=== PATIENT | male | born 1955 | race Caucasian/White ===

== ENCOUNTER 2016-08-08 17:42 | Inpatient (IN) | payer OTHER ==
--- NOTE | ~2016-08-08 | HP ---
Unit #: [id number] #: [id number] Patient: DANILO VELASQUEZ [id number] [address] [place], [place] [address] [id number] MR#: [id number] NAME: DANILO VELASQUEZ ROOM: 320 Age: 60 Sex: M Admission Date: 08/08/2016 : 1955 Attending Physician: Yasmeen Sharp M.D. Primary Care Physician: No Primary Care Physician HISTORY AND PHYSICAL CHIEF COMPLAINT Decreased saturation. HISTORY OF PRESENT ILLNESS This is a 60-year-old male, who is well known to me from previous admissions. In 2015 the patient had a very lengthy stay. Had to have a tracheostomy placed and PEG tube placed. The patient was discharged to [facility]. The patient stayed at [facility] for almost 19 months, came home 2 weeks ago. He was being seen by a nurse practitioner at home. Last week patient had a chest x-ray done, was found to have pneumonia, was started on p.o. antibiotics. On Saturday the patient was not looking good. He was getting worse. The patient was advised to come to the ER. The patient was found to have pneumonia and acute on chronic respiratory failure. The patient did not complain of chest pain. He had low-grade temperature of 99 or so. He was having a lot of drainage from his tracheostomy tube. It was very thin, and according to the patient's sister, it was projectile whenever they went to clean the tracheostomy. The patient also had been having very liquid stool since his discharge from [facility], and there was a lot of smell. The patient did not complain of abdominal pain, and he did not have any vomiting. The patient also was having very dark colored urine. PAST MEDICAL HISTORY 1. History of chronic respiratory failure with history of tracheostomy done in 2016. 2. History of autoimmune encephalitis, on immunoglobulins. 3. History of diabetes mellitus type 2. 4. History of hypertension. 5. History of coronary artery disease, on medical treatment, status post cardiac cath done April 14, 2015, which showed 75% mid LAD stenosis, 75% distal LAD stenosis, 70% stenosis anterior division of the first diagonal branch, 70% stenosis posterior left ventricular branch of the RCA. 6. Hyperlipidemia. 7. History of chronic back pain and degenerative disk disease. PAST SURGICAL HISTORY 1. History of bilateral knee surgery. 2. History of tonsillectomy. 3. History of cardiac cath. Unit #: [id number] #: [id number] Patient: DANILO VELASQUEZ 4. History of tracheostomy. 5. History of PEG placement. 6. 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 Patient had left hemicolectomy with sigmoid colectomy with transverse colostomy and Savanna pouch. This procedure was done in 2015. HOME MEDICATIONS 1. Norvasc 5 mg q.12 hours. 2. Levemir 8 units subcu q.12. 3. Novolin R p.r.n. 4. Isosorbide 20 mg q.12. 5. Senna 10 mL p.o. p.r.n. 6. Roman-Dur 100 mg q.8 hours. 7. Sarafem 20 mg daily. 8. Olanzapine 5 mg daily. 9. Multivitamin daily. 10. MiraLAX 17 grams daily. 11. Simethicone 40 mg q.8. 12. Hydrocodone 10/325 q.4 p.r.n. 13. Vimpat 100 mg q.12. 14. Xanax 0.5 mg q.6 hours. SOCIAL HISTORY Patient was in [facility] for almost 19 months. He came home about 2 weeks ago. There is no history of smoking, alcohol or drug abuse. ALLERGIES Tetanus and diphtheria toxoid. FAMILY HISTORY Positive for coronary artery disease. REVIEW OF SYMPTOMS As per history of presenting illness. PHYSICAL EXAMINATION GENERAL: The patient is being evaluated in room 320. VITAL SIGNS: Blood pressure is 126/72, respiratory rate (1) , pulse 66, temperature 98.1. The patient is on oxygen; saturation is 100% at this time. HEENT: Head is normocephalic. Eye movements are normal. NECK: Patient has tracheostomy in place. A lot of thin discharge is seen. RESPIRATORY: Chest has decreased air entry bilaterally. CVS: S1, S2 positive. Regular rhythm. ABDOMEN: Scarring from the previous surgery. PEG tube is in place. Colostomy is in place. EXTREMITIES: Trace edema is present, left more than right. AUTO TOP MECHANIC: The patient is awake and alert. Not able to communicate much. Most of the history was taken from the patient's sister, (2) . DIAGNOSTIC STUDIES LAB WORKUP: C. diff. is positive. ABG showed pH 7.36, pCO2 44.4, pO2 54.5, bicarb 25, oxygen saturation 88%. Lactic acid is 2. WBC is 16.1, hemoglobin 9.3, hematocrit 28, platelet count 166. BMP showed sodium 139, potassium 3.4, chloride 106, BUN 21, creatinine 1.1. Liver enzymes are stable. Urinalysis was done, which showed 4+ bacteria. Lactic acid is 1.7. Unit #: [id number] #: [id number] Patient: DANILO VELASQUEZ ASSESSMENT 1. Patient is being admitted to telemetry unit with diagnoses of acute on chronic respiratory failure status post trach. 2. Sepsis. 3. C. diff. colitis. 4. Urinary tract infection. 5. Healthcare facility acquired pneumonia. 6. History of autoimmune encephalitis. 7. History of CVA in the past. 8. History of diabetes mellitus. 9. Hypertension. 10. Hyperlipidemia. 11. Coronary artery disease. PLAN Patient is being started on broad-spectrum IV antibiotics. Panculture has been done. Dr. Krishnan has been consulted. Lovenox 40 mg subcu daily for DVT prophylaxis is being started. Home medications have been reviewed and adjusted. Dr. Oakes has been consulted and will be started on immunoglobulin 60 grams once every 2 weeks. Please refer to progress note for further orders. PROGNOSIS Poor. NOTE: I have discussed the plan of care with the patient's sister. Dictated by Brittaney Smallwood TD: 08/10/2016 16:04 JOB #: [id number] HISTORY AND PHYSICAL Page 1 of 1 X Yasmeen Sharp MD HISTORY AND PHYSICAL
--- NOTE | ~2016-08-08 | FU ---
[facility] Nutrition Therapy DATE: 08/17/16 Patient: DANILO VELASQUEZ Physician: TANIKA Address: [address] [place] [address] DRIVE Room/Bed: [address] [place] [address], Zip: [place] [address] Admit Date: 08/08/16 Date of : 55 Height: 5 8 Weight: 200 91 NUTRITION MONITORING/FOLLOW-UP: Reason: Follow up Anthropometrics: Wt: 91 kg Labs: K+ 3.2 Gluc 114 Creat 0.5 Ca++ 7.3 Mg++ 1.4 Accuchecks 126-127 Meds: Levemir, protonix, MgSO4, KCl, senokot, novolog, NaCl, miralax I&O's: 5900/1900, last BM 08/17, colostomy Skin: Pressure ulcer to sacrum Scabs/ redness/ scars B:E Edema: Trace- BLE/ BUE/ LUE Diet: Mechanical chopped with NTL Assessment: Chart reviewed, events noted. RD spoke with RN, who reports that the pt's intake continues to be adequate, and family typically feeds him. Pt continues on a mechanical chopped diet with NTL. High protein diet education provided to family by RD on 08/09 d/t the pt's noted pressure ulcer. Please see recommendations below. Dx: Increased protein needs RT skin breakdown AEB pressure ulcer to sacrum- ACTIVE Intervention: 1. Continue diet and supplements Monitoring, Evaluation and Goals: 1. Oral intake- GOALS MET 2. Weight- GOALS MET/ IN PROGRESS 3. Skin- IN PROGRESS Recommendations: 1. Continue current diet and supplement regimen with mechanical chopped/ ground foods and Ensure pudding BID. 2. Add a MVI with minerals to the pt's medication regimen to promote wound healing. Status: Pt is at mild nutritional risk. [facility] Nutrition Therapy DATE: 08/17/16 Patient: DANILO VELASQUEZ Physician: TANIKA Address: [address] [place] [address] DRIVE Room/Bed: [address] [place] [address], Zip: [place] [address] Admit Date: 08/08/16 Date of : [birth year] Height: 5 8 Weight: 200 91 Respectfully, STEPHON SCHILLING, [place], LD [facility] cc: client file
--- NOTE | ~2016-08-08 | A ---
[facility] Nutrition Therapy DATE: 08/09/16 Patient: DANILO VELASQUEZ Physician: TANIKA Address: [address] Room/Bed: [address], Zip: [place] [address] Admit Date: 08/08/16 Date of : 55 Height: 5 8 Weight: 202 92 NUTRITIONAL ASSESSMENT: REASON: ONE NUTRITION RISK PT RE: PRESSURE ULCER/NON-HEALING WOUND PT IS 60 Y.O. MALE ADMITTED FOR HAP PMH: NO RECENT H&P IN [facility]. PER CHART/PAST NOTES: TRACHEOSTOMY, DM, SEIZURES, CVA, HTN, HLD, COLITIS, CAD, HX OF (R) FOOT MRSA INFECTION Anthropometrics: 5'8" (PER FAMILY), WT: 178# (FAMILY) (81 KG), BMI: 27.1 Labs: GLU: 267, CA+:7.9, ALB: 2.1 Meds: NACL, PROTONIX, NOVOLOG, D5%, SENOKOT, MIRALAX I/O & Bowel function: 1642/535 Skin Integrity: BILATERAL BUTTOCKS PRESSURE ULCER EDEMA: PEDAL/ANKLE TRACE EDEMA; BILATERAL HIPS GENERAL Estimated Nutrition Needs: INCREASED PROTEIN NEEDS 2' SKIN BREAKDOWN NOTED Assessment: CHART REVIEWED AND EVENTS NOTED. PT SEEN FOR PRESSURE ULCER/NON-HEALING WOUND. PT HARD OF HEARING W/TRACH IN PLACE, RD SPOKE TO SISTER AT BEDSIDE FEEDING PT. SISTER REPORTS PT HAS GOOD PO INTAKE AND APPETITE, NOTING NO C/O N/V/D. OF NOTE, PT IS A FEEDER. SISTER ADDS PT HAS BEEN EATING WELL PAST MONTH (NO ENTERAL NUTRITION SUPPORT). SISTER NOTES PT HAS LOST WEIGHT BUT UNABLE TO IDENTIFY AMOUNT AND TIME FRAME. PER [facility], PT WEIGHED ~196-235# BACK IN APR 2016. THIS RD ENCOURAGED ADEQUATE KCAL, PROTEIN AND FLUID INTAKE TO PROMOTE SKIN HEALING, SISTER AGREED THAT ENSURE PUDDING WOULD BE BENEFICIAL FOR PT (PT RECEIVING MECHANICAL GROUND + NECTAR THICK LIQUIDS). FAMILY REPORTED NO DIET QUESTIONS AT THIS TIME. Dx: INCREASED PROTEIN NEEDS R/T SKIN BREAKDOWN AEB PRESSURE ULCER NOTED ON BILATERAL BUTTOCKS. Intervention: 1. MECHANICAL GROUND + NECTAR THICK LIQUID DIET 2. ENSURE PUDDING BID 3. DIET EDUCATION Monitoring, Evaluation and Goals: 1. ORAL INTAKE; CONSUME >50% OF MEALS AND SUPPLEMENTS W/NO C/O N/V/D 2. WEIGHTS; PROMOTE WEIGHT MAINTENANCE 3. LABS; WNL-GLU [facility] Nutrition Therapy DATE: 08/09/16 Patient: DANILO Espinal RON Physician: TANIKA Address: [address] [place] [address] DRIVE Room/Bed: [facility], Zip: [place] [address] Admit Date: 08/08/16 Date of : 55 Height: 5 8 Weight: 202 92 4. SKIN; PROMOTE SKIN HEALING MONITOR: -PO INTAKE/APPETITE -WEIGHTS -SUPPLEMENT INTAKE Recommendations: 1. PLEASE ORDER ENSURE PUDDING BID W/MEALS 2. CONSIDER ADDING MVI W/MINERAL DAILY TO PT'S CURRENT MEDICATION REGIMEN TO PROMOTE SKIN HEALING 3. APPRECIATE FAMILY AND STAFF TO CONTINUE TO ENCOURAGE PO INTAKE + ASSIST W/PO INTAKE RD WILL F/U PER PROTOCOL PT IS MILDLY COMPROMISED Respectfully, SAVANNAH HARDING MS, RD, LD Food and Nutritional [facility] cc: client file
--- NOTE | ~2016-08-08 | OR ---
Unit #: [id number] #: [id number] Patient: DANILO VELASQUEZ [id number] [address] [place], [place] [address] [id number] I MR#: [id number] NAME: DANILO VELASQUEZ ROOM: 320 Date of Procedure: 08/21/2016 Admission Date: 08/08/2016 Surgeon: Serafin Arndt M.D. : 1955 Attending Physician: Yasmeen Sharp M.D. Primary Care Physician: No Primary Care Physician PROCEDURE OPERATIVE NOTE PROCEDURE PERFORMED Tracheostomy tube downsizing at bedside. INDICATION FOR PROCEDURE Facilitating speech therapy. PREMEDICATIONS None. DESCRIPTION OF PROCEDURE No consent was obtained as this is not needed. Patient was prepped and positioned in a proper way and suction was applied first, then the cuff was made sure deflated to the end and the old tracheostomy tube was removed with no complication. Then, a new Shiley size 6 cuffless tube was inserted over the obturator inside the old tract with no complication. The trach collar was applied again and patient tolerated his procedure well with no immediate complications. Dictated by... Serafin Arndt M.D. EA/mckenna TD: 08/21/2016 10:05 JOB #: [id number] PROCEDURE OPERATIVE NOTE Page 1 of 1 X SERAFIN ARORA MD X PROCEDURE OPERATIVE NOTE
--- NOTE | ~2016-08-08 | OR ---
Unit #: [id number] #: [id number] Patient: DANILO VELASQUEZ [id number] [address] [address] [id number] MR#: [id number] NAME: DANILO VELASQUEZ ROOM: 320 Date of Procedure: Admission Date: 08/08/2016 Surgeon: Nemo Krishnan M.D. : 1955 Attending Physician: Yasmeen Sharp M.D. Primary Care Physician: Alona Primary Care Physician PROCEDURE OPERATIVE NOTE PROCEDURE PERFORMED Diagnostic bronchoscopy. INDICATIONS Pneumonia. PRE-PROCEDURE DIAGNOSIS Pneumonia. POST PROCEDURE DIAGNOSIS Pneumonia. DETAILS OF THE PROCEDURE After taking consent from the patient explaining the risks and benefits, the patient was placed in a proper position. Bronchoscope introduced through the tracheostomy tube which was sitting well above the em. We examined the right upper lobe, right middle lobe, right lower lobe, left upper lobe, lingula and left lower lobe. There were thick mucoid plugs in the right upper and middle lobe and lower lobe which were therapeutically suctioned. Then, we did a bronchoalveolar lavage in the right lower lobe area with 100 mL of saline in and 20 mL back. The patient tolerated the procedure very well. No complications happened. Dictated by... Brittaney Gaviria/eayl TD: 08/11/2016 15:48 JOB #: [id number] Unit #: [id number] #: [id number] Patient: DANILO VELASQUEZ PROCEDURE OPERATIVE NOTE Page 1 of 1 X Nemo Krishnan MD X PROCEDURE OPERATIVE NOTE
--- NOTE | ~2016-08-08 | DS ---
Unit #: [id number] #: [id number] Patient: DANILO CUEVA [id number] [address] [address] [id number] I MR#: [id number] NAME: DANILO CUEVA ROOM: 320 Age: 60 Sex: M Admission Date: 08/08/2016 : 1955 Discharge Date: 08/22/2016 Attending Physician: Yasmeen hSarp M.D. DISCHARGE SUMMARY Patient has had a pretty lengthy stay during this hospitalization. DISCHARGE DIAGNOSES 1. Acute on chronic hypoxic respiratory failure. 2. History of tracheostomy in place and oxygen to keep saturation above 95%. 3. Pneumonia, most likely healthcare facility-acquired pneumonia as patient was discharged from [facility] recently. Patient has completed a course of antibiotics. 4. Urinary tract infection with urine culture positive for extended-spectrum beta-lactamase production and Klebsiella pneumoniae. Patient has completed a course of treatment. 5. Relapse of Clostridium difficile infection. 6. Hypokalemia, resolved. 7. Hypomagnesemia, improved. 8. Diabetes mellitus type 2. 9. History of autoimmune encephalitis. 10. History of seizure disorder. 11. History of coronary artery disease, on medical treatment. 12. Hyperlipidemia. 13. History of chronic back pain with degenerative disc disease. DISCHARGE MEDICATIONS 1. Metronidazole 500 mg every 8 hours until August 24, 2016. 2. Bumex 1 mg b.i.d. 3. Zestril 5 mg at bedtime. 4. MiraLax p.r.n. 5. Multivitamin daily. 6. Hydrocodone. Continue home dose. 7. Levemir 10 units subcutaneous q.a.m. and 6 units at night. 8. Theophylline. Continue home dose. 9. Zyprexa 5 mg through G-tube daily. 10. Vimpat 100 mg q.12 hours. 11. Sarafem 20 mg daily. 12. Simethicone 40 mg 3 times daily. 13. Ativan 1 mg q.i.d. CONSULTATIONS 1. Dr. Christian Arndt from pulmonary services. 2. Dr. Cruz from Infectious Disease. PROCEDURES PERFORMED 1. Tracheostomy tube downsizing at bedside which was done on August 21, 2016, by Dr. Arndt. Unit #: [id number] #: [id number] Patient: DANILO CUEVA R 2. Diagnostic bronchoscopy which was done by Dr. Krishnan on August 11, 2016. DIAGNOSTIC STUDIES LABORATORY ON DISCHARGE: Glucose is 70. BMP shows sodium 138, potassium 3.4, chloride 104, BUN 7, and creatinine 0.6. CBC shows WBC 7.7, hemoglobin 8.4, hematocrit 25, and platelet count of 224,000. HOSPITAL COURSE Mr. Danilo Cueva is a 60-year-old male who has had a very lengthy stay at [facility]. He was admitted with shortness of breath and decreased saturation. Patient was admitted to telemetry unit with acute on chronic respiratory failure. Patient was septic and diagnosed with a UTI, pneumonia, and C. difficile colitis. Patient was treated in the hospital with broad spectrum IV antibiotic and later on tapered as per Dr. Cruz's consultation and recommendation. Patient has had C. difficile infection even in the past, and this was a relapse. Patient has completed a course of antibiotics for UTI and also for pneumonia. We were trying to get rehab placement for this patient but not available, not accepting physician or a facility. Patient refused to go to [facility]. Patient's would like to take him home, and patient will be discharged home. He is stable today. PHYSICAL EXAMINATION VITAL SIGNS: Blood pressure 117/65, respiratory rate 18, pulse 66, and temperature 98.8. HEENT: Head is normocephalic. Trach is in place. CHEST: Decreased air entry bilateral. CARDIOVASCULAR: Regular rhythm. ABDOMEN: Soft. PEG tube is in place. Colostomy is in place. DISCHARGE INSTRUCTIONS 1. Patient is being discharged home. 2. Oxygen is being arranged to keep saturation above 95%. 3. Continue suctioning at home. Patient's is aware of that. 4. Tube feeds per senior mainframe programmer analyst. 5. Med Assist to follow patient. 6. Follow up with primary care provider in one week. 7. CBC and BMP to be done in one week. 1. Dictated by... Yasmeen Sharp M.D. Kyle TD: 08/22/2016 17:32 JOB #: [id number] Unit #: [id number] #: [id number] Patient: DANILO CUEVA DISCHARGE SUMMARY Page 1 of 1 X Yasmeen Sharp MD X DISCHARGE SUMMARY
--- NOTE | ~2016-08-08 | FU ---
[facility] Nutrition Therapy DATE: 08/21/16 Patient: DANILO VELASQUEZ Physician: TANIKA Address: [address] [place] [address] DRIVE Room/Bed: [address] [place] [address], Zip: [place] [address] Admit Date: 08/08/16 Date of : 55 Height: 5 8 Weight: 199 90.6 NUTRITION MONITORING/FOLLOW-UP: Reason: Enteral nutrition recommendations Anthropometrics: Ht: 5'8" Adm wt: 92 kg BMI: 30.8 Wt 08/21: 90.6 kg Labs: Gluc 115 BUN 7 Ca++ 8.3 Alb 2.4 Accuchecks 80-138 Meds: Levemir, protonix, MgSO4, KCl, senokot, novolog, NaCl, miralax, MVI + minerals I&O's: 6920/2140, last BM 08/20, colostomy, C.diff Skin: Stage 2 pressure ulcer to coccyx Scabs/ scars/ redness BLE Edema: Trace BLE/ LUE Generalized RUE 2+ Estimated Nutrition Needs: 0438-7722 kcals (22-26 kcals/kg) 108-136 grams protein (1.2-1.5 grams/kg) Used current lift weight of 90.6 kg for calculations Diet: [place] diet with Honey thick liquids Assessment: Chart reviewed, events noted. RD spoke with BINDING CUTTER, who reports that the pt likely aspirated over the weekend, and just had a new BINDING CUTTER video evaluation. BINDING CUTTER is now recommending that the pt consume a slick diet with honey thick liquids for oral gratification, and enteral nutrition for his main source of nutrition noting dysphagia. Slow feeding also recommended. Based on previous nutrition assessments, the pt was previously had a good appetite and was consuming adequate nutrition. Weight loss of unknown amount reported by the pt's family. Per RN report yesterday, the pt's family usually feeds him, and he consumed ~two meals each day over the past couple of days. RD spoke with the pt's brother at bedside today. Pt's brother states that the pt "Eats well when he eats", and agrees that he typically consumes almost 100% of breakfast and dinner, but does not eat lunch. RD explained bolus vs. continuous feedings to the pt's brother, and he voiced understanding. Pt has received continuous enteral nutrition in the past at [facility], however, family has never administered bolus enteral feeds and will need [facility] Nutrition Therapy DATE: 08/21/16 Patient: DANILO VELASQUEZ Physician: TANIKA Address: [address] Room/Bed: [address] [place] [address], Zip: [place] [address] Admit Date: 08/08/16 Date of : 55 Height: 5 8 Weight: 199 90.6 assistance with feeding instructions. Please see recommendations below. Dx: Increased protein needs RT skin breakdown AEB stage II pressure ulcer to coccyx/ sacrum- ACTIVE Intervention: 1. BINDING CUTTER 2. Enteral nutrition Monitoring, Evaluation and Goals: 1. Weight; prevent unintentional weight loss- IN PROGRESS 2. Skin; promote healing- IN PROGRESS NEW GOALS (IN ADDITION TO ABOVE): 1. Oral intake; tolerate BINDING CUTTER recommended diet for oral gratification 2. Enteral nutrition; tolerate and provide >80% of the pt's estimated needs with goal volume 3. BINDING CUTTER; tolerate least restrictive diet Recommendations: 1. Continue diet per BINDING CUTTER recommendations for oral gratification. 2. RD recommending bolus enteral nutrition with Glucerna 1.5 at this time to determine if the pt can tolerate bolus feeds. Bolus regimen will be based on the pt's intake as follows: (One can Glucerna 1.5 = 237 mL) (237 mL Glucerna 1.5 provides 356 kcals/ 19.6 grams protein/ 180 mL free H20) -IF THE PT HAS POOR/ MINIMAL INTAKE OF MEALS: Bolus 474 mL (two cans) Glucerna 1.5 TID at the pt's normal meal times for a total of 6 cans (1422 mL) per day May bolus one can (237 mL) q 4 hrs if the pt cannot tolerate two cans at one time -IF THE PT CONSUMES 50% OF MEALS: Bolus one can Glucerna 1.5 with each meal if the pt consumes 50% of meals or greater (Bolus two cans Glucerna 1.5 at each meal if the pt does not consume at least 50% of meals) 3. Add 200 mL free H20 flushes q 4 hrs per per MD orders. [facility] Nutrition Therapy DATE: 08/21/16 Patient: DANILO VELASQUEZ Physician: TANIKA Address: [facility] [address] Room/Bed: [address] [place] [address], Zip: [place] [address] Admit Date: 08/08/16 Date of : 55 Height: 5 8 Weight: 199 90.6 4. If the pt is unable to tolerate bolus feeding, consider continuous enteral nutrition with Glucerna 1.5 @ 60 mL/hr to provide: 2160 kcals/ 119 grams protein/ 1093 mL free H20 Status: Pt is at moderate nutritional risk. RD will continue to follow hospital course. Respectfully, STEPHON SCHILLING, [place], LD [facility] Nutrition[facility] Services [facility] cc: client file
--- NOTE | ~2016-08-08 | CO ---
Unit #: [id number] #: [id number] Patient: DANILO VELASQUEZ [id number] [address] [place], [place] [address] [id number] I MR#: [id number] NAME: DANILO VELASQUEZ ROOM: 320 Age: 60 Sex: M Admission Date: 08/08/2016 : 1955 Attending Physician: Yasmeen Sharp M.D. Primary Care Physician: Alona Primary Care Physician Consultation Date: 08/16/2016 CONSULTATION REPORT REASON FOR CONSULTATION Antibiotic management in a patient with multi-drug resistant Pseudomonas. HISTORY OF PRESENT ILLNESS This is a 60-year-old male that is well known to our service when patient was at the [facility] for greater than one year. While there, the patient was treated for frequent urinary tract infections, multiple pneumonias including multi-drug resistant Pseudomonas pneumoniae and colonization, CMV colitis, C. 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 The patient was at home for approximately two weeks when he was requested to come back to the hospital by his home health nurses. The patient's family, who is at the bedside, reports that they felt that his oxygen level was decreasing but they are unaware of he had any increasing secretions. The patient was admitted to the hospital and a CT scan revealed bilateral pneumonia and patient was started on meropenem. The patient was also diagnosed with a Klebsiella ESBL urinary tract infection as well as relapse of C. diff colitis. The patient was also given Flagyl. The patient's bronchoscopy now is growing multi-drug resistant Pseudomonas and infectious disease was requested for antibiotic management. The patient did have a followup chest x-ray since he has been at the hospital and, after one week of antibiotic therapy, has had resolution on the left side of his infiltrates and minimal right sided infiltrates. In discussing with patient, he looks significantly better than the last time we have seen this patient in May 2016. He is more alert, he has a trach collar on, and he appears to be able to communicate with others around him. PAST MEDICAL HISTORY 1. Chronic respiratory failure with history of tracheostomy that was placed in 2015. 2. Autoimmune encephalitis, on immunoglobulins. 3. Diabetes mellitus. 4. Hypertension. 5. Coronary artery disease. 6. Hyperlipidemia. 7. Chronic back pain with degenerative disc disease. As previously stated in the history of present illness: 8. C. diff colitis. 9. Multi-drug resistant Pseudomonas pneumoniae and multiple Pseudomonas and ESBL urinary tract infections. PAST SURGICAL HISTORY 1. Bilateral knee surgery. 2. Tonsillectomy. Unit #: [id number] #: [id number] Patient: DANILO VELASQUEZ 3. Cardiac cath. 4. Tracheostomy. 5. PEG placement. 6. Colostomy. ALLERGIES Tetanus and diphtheria. MEDICATIONS The patient is currently on meropenem and Flagyl and he got a one-time dose of tobramycin yesterday. For other medications, please refer to patient's MAR. SOCIAL HISTORY The patient currently lives with his family members. He has no alcohol or tobacco abuse at this time. REVIEW OF SYSTEMS Difficult to obtain as patient is currently on a trach collar. However, he shakes his head no to having any difficulty with breathing and he denies any abdominal pain with palpation. PHYSICAL EXAMINATION VITAL SIGNS: Temperature 97.6 with no elevated temperature since admission. Pulse is 82, blood pressure 158/89 and respiratory rate is 18. GENERAL: This is a no apparent distress male who has a trach collar in place. HEENT/NECK: His pupils are equal. His neck is supple. CARDIOVASCULAR: S1, S2. Regular rate and rhythm. PULMONARY: Occasional rhonchi noted throughout. ABDOMEN: Positive bowel sounds. There is an incision that is healed in the midline and he has a colostomy in place. EXTREMITIES: PICC line in the right upper extremity. There is no edema noted. DIAGNOSTIC STUDIES LABORATORY: BUN 11, creatinine 0.6, sodium 139, potassium 3.6, chloride 104, CO2 30, bilirubin 0.6 when last checked, AST 27, ALT 27, alkaline phos. 182. Lactic acid on admission was 1.7. Procalcitonin was 0.26. White blood cell count is 8.4 which is improved from admission of 16.1. Hemoglobin 9.1, hematocrit 27.3, and platelets 198. Urinalysis that was done on admission showed 50-100 WBCs, 4+ bacteria, no RBCs, 2+ leukocytes and negative nitrates. Blood cultures are currently negative to date. C. diff is positive toxin. Urine culture shows ESBL Klebsiella pneumoniae. Sputum culture showed normal respiratory marie and bronchoscopy showed 2+ Pseudomonas aeruginosa, multi-drug resistant. IMAGING: Patient's admitting CT scan of the chest shows bilateral pneumonia and repeat chest film approximately one week later showed infiltrates in the left have resolved and small right pleural effusion, atelectasis or consolidation in the right base. Unit #: [id number] #: [id number] Patient: DANILO VELASQUEZ This is a 60-year-old male well known to our service who has had frequent urinary tract infections, multi-drug resistant pseudomonas, C. diff colitis, CMV colitis and autoimmune encephalitis. The patient was at the [facility] for greater than one year and he has since been home for approximately two weeks and returned to the hospital with some hypoxia. The patient's CT scan was consistent with bilateral pneumonia and he also had an ESBL Klebsiella urinary tract infection as well as relapse of C. diff colitis. At this time, despite being on therapy that was not sensitive to a Pseudomonas that was growing on his bronchoscopy, the patient's chest x-ray has significantly improved and he does not appear to be hypoxic at this time. He remains on trach collar and is clinically improving. This makes me suspicious to feel that his multi-drug resistant Pseudomonas aeruginosa that was done on bronchoscopy is colonization. Will complete a course of meropenem. Will hold any additional antibiotic as the patient does have a relapse of C. diff colitis and continue Flagyl. The case will be discussed with Dr. Fito Cruz in detail. Will also repeat procalcitonin level of the blood that is currently in the lab and will check a CBC in the a.m. Thank you for allowing us to participate in the car of this patient with further recommendations to follow pending patient's clinical course. Dictated by... Kirsten Solorzano A.P.R.NGrant for Brittaney García/eyal TD: 08/16/2016 11:34 JOB #: [id number] CONSULTATION REPORT Page 1 of 1 X X CONSULTATION REPORT
--- NOTE | ~2016-08-08 | CT57 ---
[facility]. [facility] A Service of [facility] & [facility] RADIOLOGY TEXT RESULTS PATIENT: DANILO VELASQUEZ LOCATION: [facility] 320-01 : 55 UNIT #: [id number] AGE: [address]: Yasmeen Sharp MD SEX: M ORDER DR: [id number] [place] [address] [facility]. [place], [place] [address] [id number] I MR#: [id number] Acc #: [id number] NAME: DANILO VELASQUEZ : 1955 SEX: M STUDY DATE/TIME: 08/09/2016 13:48 UNIT: A U ROOM: 320 STUDY DESCRIPTION: CT Chest Wo Cont Attending Physician: Yasmeen Sharp M.D. Ordering Physician: Nemo Krishnan M.D. Primary Care Physician: No Primary Care Physician MEDICAL IMAGING REPORT This report is preliminary unless electronic signature is present EXAM CT chest no contrast 08/09/2016 INDICATIONS 60-year-old male with pneumonia for the past 2 days. Left femur fracture, hypertension, diabetes. Tracheostomy patient. TECHNIQUE Noncontrast CT chest was performed. This CT exam was performed with one or more of the following radiation dose reduction techniques: automatic exposure control, adjustment of mA and/or kV according to patient size, and iterative reconstruction. COMPARISON STUDIES 02/04/[address] CHEST: Trace right and small left pleural effusions. There is confluent atelectasis or pneumonia in the left lung base. Similar findings in the right lung base although aeration in the right lung base has improved since the prior study. Patchy areas of consolidation are present in the superior segment left lower lobe and in the lingula, most characteristic of pneumonia until proven otherwise. Similar patchy ground-glass opacities and more confluent opacities are present in the right upper lobe and right middle lobe, most characteristic of pneumonia until proven otherwise. No pneumothorax. Follow up to clearing after appropriate therapy is recommended. Tracheostomy tube in good position above the em. Visualized thyroid unremarkable. The left thyroid lobe is either atrophic or surgically absent. No pericardial effusion. No axillary adenopathy or mediastinal adenopathy. There are reactive-appearing mediastinal nodes. There is STS. [facility] A Service of [facility] & [facility] RADIOLOGY TEXT RESULTS PATIENT: DANILO VELASQUEZ LOCATION: [facility] 320-01 : [birth year] UNIT #: [id number] AGE: [address]: Yasmeen Sharp MD SEX: M ORDER DR: aneurysmal dilatation of the ascending aorta up to 4.2 cm. This is similar to the prior study. There is old healed granulomatous disease. Included upper abdomen demonstrates a G-tube in the stomach. Pancreas atrophic. Gallbladder contracted. Liver unremarkable. Trace amount of perihepatic ascites and perisplenic ascites. No evidence of bowel obstruction or free air. Osseous structures demonstrate no suspicious bone lesion. There are degenerative changes in the shoulders, right greater than left. There is degenerative change in the thoracic spine. IMPRESSION 1. Imaging features most characteristic of bilateral pneumonia. Trace right and small left effusions. Follow up to clearing after appropriate therapy is recommended. 2. Mild aneurysmal dilatation of the ascending aorta is similar to the prior study. Probable reactive mediastinal nodes. 3. Trace amount of upper abdominal ascites. 4. Tracheostomy tube, NG tube in satisfactory position. Dictated by... Allen Patel M.D. THIS IS AN ELECTRONICALLY VERIFIED REPORT Allen Patel M.D. at 08/10/2016 7:54 AM Anusha TD: 08/09/2016 17:32 JOB #: [id number] MEDICAL IMAGING REPORT Page 1 of 1 COPY
--- NOTE | ~2016-08-08 | CR72 ---
[facility] A Service of [facility] & [facility] RADIOLOGY TEXT RESULTS PATIENT: DANILO VELASQUEZ LOCATION: [facility] 320-01 : 55 UNIT #: [id number] AGE: [address]: Yasmeen Sharp MD SEX: M ORDER DR: [id number] [facility] [address] [facility]. [place], [place] [address] [id number] I MR#: [id number] Acc #: [id number] NAME: DANILO VELASQUEZ : 1955 SEX: M STUDY DATE/TIME: 08/15/2016 12:51 UNIT: [address] ROOM: [facility] STUDY DESCRIPTION: CR Chest Single View Portable Attending Physician: Yasmeen Sharp M.D. Ordering Physician: Yasmeen Sharp M.D. Primary Care Physician: No Primary Care Physician MEDICAL IMAGING REPORT This report is preliminary unless electronic signature is present EXAM Portable chest INDICATION Shortness of breath, pneumonia since August 08. COMPARISON STUDIES With August 08, 2016 FINDINGS Small right pleural effusion with atelectasis or consolidation in the right base. Heart size stable. Infiltrates in the left lung have resolved. Tracheostomy tube stable. PICC line stable. IMPRESSION 1. The infiltrates in the left lung have resolved. 2. Stable small right pleural effusion with atelectasis or consolidation in the right lung base. Dictated by... Luis Geiger M.D. THIS IS AN ELECTRONICALLY VERIFIED REPORT Luis Geiger M.D. at 08/16/2016 7:02 AM [place] TD: 08/15/2016 16:27 JOB #: [id number] MEDICAL IMAGING REPORT Page 1 of 1 COPY
--- NOTE | ~2016-08-08 | EKG ---
PATIENT: DANILO VELASQUEZ UNIT #: [id number] Ventricular Rate: 80 BPM Atrial Rate: 80 BPM P-R Interval: 160 ms QRS Duration: 106 ms Q-T Interval: 384 ms QTC Calculation(Bezet): 442 ms P [place]: 21 degrees Calculated R [place]: 60 degrees Calculated T [place]: -72 degrees Diagnosis Line: Normal sinus rhythm Diagnosis Line: Nonspecific ST depression Diagnosis Line: Borderline ECG Diagnosis Line: When compared with ECG of 15-APR-2015 05:52, Diagnosis Line: QRS duration has increased Diagnosis Line: Borderline criteria for Inferior infarct are now Diagnosis Line: Present Diagnosis Line: Inverted T waves have replaced nonspecific T wave Diagnosis Line: abnormality in Inferior leads Diagnosis Line: T wave inversion no longer evident in Anterior Diagnosis Line: leads Diagnosis Line: QT has shortened Diagnosis Line: Confirmed by CJ THOMAS MD ([id number]) on 08/09/2016 Diagnosis Line: 6:41:35 PM INTERPRETING MD: WILLIAM CHURCH
--- NOTE | ~2016-08-08 | CR72 ---
[facility] A Service of [facility] RADIOLOGY TEXT RESULTS PATIENT: DANILO VELASQUEZ LOCATION: [facility] 320-01 : 55 UNIT #: [id number] AGE: [address]: Yasmeen Sharp MD SEX: M ORDER DR: [id number] [facility] [address] [facility]. [place], [place] [address] [id number] I MR#: [id number] Acc #: [id number] NAME: DANILO VELASQUEZ : 1955 SEX: M STUDY DATE/TIME: 08/08/2016 18:21 UNIT: CEDOF ROOM: 68904 STUDY DESCRIPTION: CR Chest Single View Portable Attending Physician: Yasmeen Sharp M.D. Ordering Physician: Yasmeen Brush M.D. Primary Care Physician: No Primary Care Physician MEDICAL IMAGING REPORT This report is preliminary unless electronic signature is present EXAM Portable chest. INDICATION Hypoxia and fever today. PROCEDURE Frontal view chest. COMPARISON 05/14/16 FINDINGS Stable cardiomegaly. Tracheostomy tube is in place. Stable elevated right hemidiaphragm with infiltrate or atelectasis in the right lung base. There is some patchy opacity in the left pnm-yy-ihrzo lung zone, possible right pleural effusion. IMPRESSION Persistently elevated right hemidiaphragm with stable opacity in the right lung base. There possibly is a small right pleural effusion. New patchy opacity in the left taq-az-lhsbl lung zone could represent asymmetric edema or developing infiltrate. Dictated by... Prem Tierney M.D. THIS IS AN ELECTRONICALLY VERIFIED REPORT Prem Tierney M.D. at 08/09/2016 2:25 PM NEHEMIASD/thais [facility] A Service [facility] RADIOLOGY TEXT RESULTS PATIENT: DANILO VELASQUEZ LOCATION: [facility] 320-01 : [birth year] UNIT #: [id number] AGE: [address]: Yasmeen Sharp MD SEX: M ORDER DR: TD: 08/08/2016 22:22 JOB #: [id number] MEDICAL IMAGING REPORT Page 1 of 1 COPY
--- NOTE | ~2016-08-08 | CR72 ---
[facility] A Service of [facility] RADIOLOGY TEXT RESULTS PATIENT: DANILO VELASQUEZ LOCATION: [address] : [birth year] UNIT #: [id number] AGE: [address]: Yasmeen Sharp MD SEX: M ORDER DR: [id number] [facility] [address] [facility]. [place], [place] [address] [id number] I MR#: [id number] Acc #: [id number] NAME: DANILO VELASQUEZ : 1955 SEX: M STUDY DATE/TIME: 08/08/2016 22:53 UNIT: [facility] ROOM: [facility] STUDY DESCRIPTION: CR Chest Single View Portable Attending Physician: Yasmeen Sharp M.D. Ordering Physician: Yasmeen Brush M.D. Primary Care Physician: Primary Care Physician No MEDICAL IMAGING REPORT This report is preliminary unless electronic signature is present EXAM AP portable chest, 08/08/2016 (2253 hours) HISTORY PICC placement. TECHNIQUE AP portable chest x-ray. FINDINGS Newly placed right arm PICC tip is in the mid right subclavian vein. The remainder of the exam is unchanged since earlier today. Tracheostomy tube in good position. Dense infiltrate and volume loss in the right lung base with elevation of the right hemidiaphragm. Patchy airspace infiltrates through the remainder of both lungs, stable cardiomegaly. Low lung volumes. IMPRESSION Right arm PICC tip in the right subclavian vein.. Dictated by... Damir Mark M.D. THIS IS AN ELECTRONICALLY VERIFIED REPORT Damir Mark M.D. at 08/09/2016 6:06 AM LINNETTE/milena TD: 08/09/2016 01:02 JOB #: [id number] [facility] A Service of [facility] RADIOLOGY TEXT RESULTS PATIENT: DANILO VELASQUEZ LOCATION: [address] : [birth year] UNIT #: [id number] AGE: [address]: Yasmeen Sharp MD SEX: M ORDER DR: MEDICAL IMAGING REPORT Page 1 of 1 COPY
[~2016-08-08 17:42] MED LIST: CELEBREX50 MG PO; CITALOPRAM HBR40 MG PO; CLARITIN10 M1 PO; COLACE PO; CRESTOR PO; CRESTOR10 MG PO; EXELON PO; EXELON3 MG PO; FLOMAX0.4 M1 PO; HUMALOG100 U/M1 SUBQ; HUMALOG100 U/M2 SQ; LANTUS100 U/M1 SQ; LANTUS100 U/ML SUBQ; LEXAPRO PO; LEXAPRO20 MG PO; LIPITOR40 MG PO; LITE COAT ASPI325 M2 PO; LORTAB 7.5-5001 TAB PO; METFORMIN PO; METOPROLOL SUCC25 MG PO; NEURONTIN300 MG PO; NEURONTIN600 MG PO; NOVOLOG100 U/M1 SUBQ; PERCOCET 5/321 UDTAB PO; PHENERGAN25 M1 PO; PRINIVIL10 MG PO; PRO-AMATINE5 M2 PO; PROTONIX PO; ROPINIROLE HCL0.5 MG PO; URECHOLINE50 MG PO; VENLAFAXINE HC150 M1 PO; VIMPAT50 MG PO; VITAMIN D50000 UNIT PO; ZOLOFT50 MG PO
[2016-08-08 18:37] LABS: ARTERIAL BLOOD GAS PCO2 44.4 mmHg (35.0-45.0); ARTERIAL BLOOD GAS pH 7.361 (7.350-7.450)
[2016-08-08 18:38] LABS: ARTERIAL BLD GAS O2 SATURATION 88.2 % (90.0-100.0); ARTERIAL BLOOD GAS ALLEN TEST NORMAL; ARTERIAL BLOOD GAS ART SITE RIGHT RADIAL; ARTERIAL BLOOD GAS CARBOXY HB 2.2 %sat (0.0-9.0); ARTERIAL BLOOD GAS HCO3 25.1 mmol/L; ARTERIAL BLOOD GAS MET HB 0.8 %sat (0.0-2.0); ARTERIAL BLOOD GAS PO2 54.5 mmHg (80.0-100); ARTERIAL DRAW? YES
[2016-08-08 18:56] LABS: BASOPHIL# 0.1 X10e3 (0-0.3); BASOPHIL% 0.7 % (0-2.5); EOSINOPHIL# 0.2 X10e3 (0-0.7); EOSINOPHIL% 1.5 % (0.0-7.0); HEMOGLOBIN 9.3 gm/dL (13.0-16.0); LYMPHOCYTE# 1.4 X10e3 (1.0-3.5); LYMPHOCYTE% 8.6 % (17.0-45.0); MEAN CORPUSCULAR HEMOGLOBIN 29.6 PG (28-34); MEAN CORPUSCULAR HGB CONC 33.2 g/dL (30-36); MONOCYTE# 1.3 X10e3 (0-1.0); MONOCYTE% 7.8 % (3.0-12.0); NEUTROPHIL# 13.1 X10e3 (1.5-7.1); NEUTROPHIL% 81.4 % (40-75); PLATELET COUNT 166 X10e3 (140-420); RED BLOOD COUNT 3.15 X10e (3.90-5.60); RED CELL DISTRIBUTION WIDTH 15.3 % (11.0-15.5); WHITE BLOOD COUNT 16.1 X10e3 (4.0-10.5)
[2016-08-08 18:58] LABS: DIFF IND YES
[2016-08-08 19:16] LABS: INR 1.1; PARTIAL THROMBOPLASTIN TIME 28.7 SECONDS (23.5-31.3); PROTHROMBIN TIME (PATIENT) 11.1 SECONDS (9.6-11.5)
[2016-08-08 19:18] LABS: PLATELET ESTIMATE NORMAL (NORMAL)
[2016-08-08 19:19] LABS: ALBUMIN SERUM 2.4 g/dL (3.5-5.0); BILIRUBIN, DIRECT 0.1 mg/dL (0.0-0.2); BILIRUBIN,INDIRECT 0.5 mg/dL (0.0-0.9); BILIRUBIN,TOTAL 0.6 mg/dL (0.2-2.0); BUN/CREATININE RATIO 19.09; CALCIUM SERUM 8.6 mg/dL (8.4-10.2); CREATININE SERUM 1.1 mg/dL (0.6-1.4); GLOM FILT RATE Estimated 72.6 mL/min (>60); POTASSIUM 3.4 mmol/L (3.5-5.1); PROTEIN TOTAL SERUM 6.6 g/dL (6.0-8.3)
[2016-08-08 20:01] LABS: POC - CKMB 5.5 ng/mL (0.0-7.9); POC - TROPONIN <0.05 ng/mL (<=0.05)
[2016-08-08 20:05] LABS: URINE SOURCE CLEAN CATCH
[2016-08-08 20:14] LABS: URINE APPEARANCE CLOUDY; URINE BLOOD TRACE (NEG); URINE COLOR DK YELLOW; URINE GLUCOSE NEG (NEG); URINE KETONE TRACE (NEG); URINE LEUKOCYTE ESTERASE 2+ (NEG); URINE NITRATE NEG (NEG); URINE PROTEIN 1+ (NEG); URINE SPECIFIC GRAVITY 1.024 (1.003-1.035)
[2016-08-08 20:17] LABS: CULTURE INDICATED? YES; U HYALINE CASTS AUWI 0-2 /[LPF]; URBCS1 AUWI 0-2 /[HPF] (0-2); URINE BACTERIA AUWI 4+ (NEGATIVE); URINE BILIRUBIN NEG (NEG); URINE SQUAMOUS EPITHELIAL CELL NONE SEEN /[HPF]; UWBCS1 AUWI 50-100 (0-5)
[2016-08-08] MEDS ORDERED: NORVASC PO (20:17)
[2016-08-08] MEDS ORDERED: LEVEMIR100 UNITS/ SUBQ (20:18)
[2016-08-08] MEDS ORDERED: NOVOLIN R100 UNITS/ (20:18)
[2016-08-08] MEDS ORDERED: ISORDIL PO (20:19)
[2016-08-08] MEDS ORDERED: SENNA8.8 MG/5 M PO (20:20)
[2016-08-08] MEDS ORDERED: THEOPHYLLIN PO (20:21)
[2016-08-08] MEDS ORDERED: SARAFEM20 MG PO (20:21)
[2016-08-08] MEDS ORDERED: OLANZAPINE5 MG PO (20:21)
[2016-08-08] MEDS ORDERED: MEGA MULTIVITA1 EACH PO (20:22)
[2016-08-08] MEDS ORDERED: MIRALAX17 GM PO (20:23)
[2016-08-08] MEDS ORDERED: BICARSIM80 MG PO (20:24)
[2016-08-08] MEDS ORDERED: HYDROCODON-ACE1 EAC5 PO (20:25)
[2016-08-08] MEDS ORDERED: VIMPAT100 MG PO (20:25)
[2016-08-08] MEDS ORDERED: XANAX0.5 MG PO (20:26)
[2016-08-09 05:02] LABS: BASOPHIL% 0.1 % (0-2.5); HEMATOCRIT 28.8 % (38.0-50.0); HEMOGLOBIN 9.4 gm/dL (13.0-16.0); LYMPHOCYTE# 0.7 X10e3 (1.0-3.5); LYMPHOCYTE% 5.3 % (17.0-45.0); MEAN CELL VOLUME 88.7 FL (83-96); MEAN CORPUSCULAR HEMOGLOBIN 29.1 PG (28-34); MEAN CORPUSCULAR HGB CONC 32.8 g/dL (30-36); MEAN PLATELET VOLUME 8.8 FL (6.5-11.5); MONOCYTE# 0.1 X10e3 (0-1.0); MONOCYTE% 1.1 % (3.0-12.0); NEUTROPHIL# 12.3 X10e3 (1.5-7.1); NEUTROPHIL% 93.5 % (40-75); PLATELET COUNT 154 X10e3 (140-420); RED BLOOD COUNT 3.24 X10e (3.90-5.60); RED CELL DISTRIBUTION WIDTH 15.5 % (11.0-15.5); WHITE BLOOD COUNT 13.1 X10e3 (4.0-10.5)
[2016-08-09 05:13] LABS: DIFF IND NO
[2016-08-09 06:26] LABS: ALBUMIN SERUM 2.1 g/dL (3.5-5.0); BILIRUBIN,TOTAL 0.6 mg/dL (0.2-2.0); BUN/CREATININE RATIO 21.11; CALCIUM SERUM 7.9 mg/dL (8.4-10.2); CREATININE SERUM 0.9 mg/dL (0.6-1.4); GLOM FILT RATE Estimated 92.5 mL/min (>60); POTASSIUM 4.2 mmol/L (3.5-5.1); PROTEIN TOTAL SERUM 5.7 g/dL (6.0-8.3)
[2016-08-10 06:11] LABS: BASOPHIL# 0.1 X10e3 (0-0.3); BASOPHIL% 0.6 % (0-2.5); EOSINOPHIL% 0.3 % (0.0-7.0); HEMOGLOBIN 8.3 gm/dL (13.0-16.0); LYMPHOCYTE# 1.7 X10e3 (1.0-3.5); LYMPHOCYTE% 13.9 % (17.0-45.0); MEAN CELL VOLUME 86.9 FL (83-96); MEAN CORPUSCULAR HGB CONC 33.3 g/dL (30-36); MEAN PLATELET VOLUME 8.2 FL (6.5-11.5); MONOCYTE% 8.3 % (3.0-12.0); NEUTROPHIL# 9.6 X10e3 (1.5-7.1); NEUTROPHIL% 76.9 % (40-75); PLATELET COUNT 161 X10e3 (140-420); RED BLOOD COUNT 2.88 X10e (3.90-5.60); RED CELL DISTRIBUTION WIDTH 15.7 % (11.0-15.5); WHITE BLOOD COUNT 12.5 X10e3 (4.0-10.5)
[2016-08-10 06:14] LABS: DIFF IND NO
[2016-08-10 07:02] LABS: CALCIUM SERUM 8.1 mg/dL (8.4-10.2); CREATININE SERUM 0.6 mg/dL (0.6-1.4); GLOM FILT RATE Estimated 109.3 mL/min (>60); MAGNESIUM 1.5 mg/dL (1.6-3.0); PHOSPHOROUS 2.3 mg/dL (2.5-4.6); POTASSIUM 3.4 mmol/L (3.5-5.1)
[2016-08-11 12:59] LABS: BODY FLUID SOURCE BRONCHIAL LAVAGE
[2016-08-11 13:00] LABS: BODY FLUID APPEARANCE TURBID
[2016-08-11 13:10] LABS: HEMATOCRIT 29.5 % (38.0-50.0); HEMOGLOBIN 9.7 gm/dL (13.0-16.0); MEAN CELL VOLUME 88.1 FL (83-96); MEAN PLATELET VOLUME 8.3 FL (6.5-11.5); RED BLOOD COUNT 3.35 X10e (3.90-5.60); RED CELL DISTRIBUTION WIDTH 15.5 % (11.0-15.5); WHITE BLOOD COUNT 11.1 X10e3 (4.0-10.5)
[2016-08-11 13:35] LABS: BUN/CREATININE RATIO 13.33; CALCIUM SERUM 8.4 mg/dL (8.4-10.2); CREATININE SERUM 0.6 mg/dL (0.6-1.4); GLOM FILT RATE Estimated 109.3 mL/min (>60); POTASSIUM 3.3 mmol/L (3.5-5.1)
[2016-08-12 07:41] LABS: BASOPHIL# 0.1 X10e3 (0-0.3); BASOPHIL% 1.2 % (0-2.5); DIFF IND NO; EOSINOPHIL# 0.5 X10e3 (0-0.7); EOSINOPHIL% 4.8 % (0.0-7.0); HEMATOCRIT 28.2 % (38.0-50.0); HEMOGLOBIN 9.5 gm/dL (13.0-16.0); LYMPHOCYTE# 2.5 X10e3 (1.0-3.5); LYMPHOCYTE% 24.4 % (17.0-45.0); MEAN CELL VOLUME 87.5 FL (83-96); MEAN CORPUSCULAR HEMOGLOBIN 29.5 PG (28-34); MEAN CORPUSCULAR HGB CONC 33.7 g/dL (30-36); MEAN PLATELET VOLUME 7.4 FL (6.5-11.5); MONOCYTE# 0.9 X10e3 (0-1.0); MONOCYTE% 8.4 % (3.0-12.0); NEUTROPHIL# 6.2 X10e3 (1.5-7.1); NEUTROPHIL% 61.2 % (40-75); PLATELET COUNT 183 X10e3 (140-420); RED BLOOD COUNT 3.22 X10e (3.90-5.60); RED CELL DISTRIBUTION WIDTH 15.7 % (11.0-15.5); WHITE BLOOD COUNT 10.1 X10e3 (4.0-10.5)
[2016-08-12 07:58] LABS: CREATININE SERUM 0.6 mg/dL (0.6-1.4); GLOM FILT RATE Estimated 109.3 mL/min (>60)
[2016-08-12 08:34] LABS: CREATININE SERUM 0.6 mg/dL (0.6-1.4); GLOM FILT RATE Estimated 109.3 mL/min (>60); POTASSIUM 3.4 mmol/L (3.5-5.1)
[2016-08-15 08:03] LABS: BASOPHIL# 0.1 X10e3 (0-0.3); BASOPHIL% 1.2 % (0-2.5); EOSINOPHIL# 0.5 X10e3 (0-0.7); EOSINOPHIL% 5.4 % (0.0-7.0); HEMATOCRIT 25.7 % (38.0-50.0); HEMOGLOBIN 8.7 gm/dL (13.0-16.0); LYMPHOCYTE# 2.4 X10e3 (1.0-3.5); LYMPHOCYTE% 27.5 % (17.0-45.0); MEAN CORPUSCULAR HEMOGLOBIN 29.5 PG (28-34); MEAN CORPUSCULAR HGB CONC 33.9 g/dL (30-36); MEAN PLATELET VOLUME 7.6 FL (6.5-11.5); MONOCYTE# 0.8 X10e3 (0-1.0); MONOCYTE% 9.7 % (3.0-12.0); NEUTROPHIL# 4.8 X10e3 (1.5-7.1); NEUTROPHIL% 56.2 % (40-75); PLATELET COUNT 180 X10e3 (140-420); RED BLOOD COUNT 2.96 X10e (3.90-5.60); RED CELL DISTRIBUTION WIDTH 15.5 % (11.0-15.5); WHITE BLOOD COUNT 8.5 X10e3 (4.0-10.5)
[2016-08-15 08:06] LABS: DIFF IND NO
[2016-08-15 08:29] LABS: BUN/CREATININE RATIO 21.42; CREATININE SERUM 0.7 mg/dL (0.6-1.4); GLOM FILT RATE Estimated 102.6 mL/min (>60); POTASSIUM 3.7 mmol/L (3.5-5.1)
[2016-08-16 05:41] LABS: HEMATOCRIT 27.3 % (38.0-50.0); HEMOGLOBIN 9.1 gm/dL (13.0-16.0); MEAN CELL VOLUME 87.7 FL (83-96); MEAN CORPUSCULAR HEMOGLOBIN 29.2 PG (28-34); MEAN CORPUSCULAR HGB CONC 33.3 g/dL (30-36); MEAN PLATELET VOLUME 7.9 FL (6.5-11.5); RED BLOOD COUNT 3.12 X10e (3.90-5.60); RED CELL DISTRIBUTION WIDTH 15.2 % (11.0-15.5); WHITE BLOOD COUNT 8.4 X10e3 (4.0-10.5)
[2016-08-16 06:32] LABS: BUN/CREATININE RATIO 18.33; CALCIUM SERUM 8.2 mg/dL (8.4-10.2); CREATININE SERUM 0.6 mg/dL (0.6-1.4); GLOM FILT RATE Estimated 109.3 mL/min (>60); MAGNESIUM 1.7 mg/dL (1.6-3.0); POTASSIUM 3.6 mmol/L (3.5-5.1)
[2016-08-16 11:56] LABS: HEMOGLOBIN 8.8 gm/dL (13.0-16.0); MEAN CELL VOLUME 87.3 FL (83-96); MEAN CORPUSCULAR HEMOGLOBIN 29.4 PG (28-34); MEAN CORPUSCULAR HGB CONC 33.7 g/dL (30-36); MEAN PLATELET VOLUME 7.4 FL (6.5-11.5); RED BLOOD COUNT 2.98 X10e (3.90-5.60); RED CELL DISTRIBUTION WIDTH 15.3 % (11.0-15.5); WHITE BLOOD COUNT 8.3 X10e3 (4.0-10.5)
[2016-08-17 05:29] LABS: HEMATOCRIT 24.6 % (38.0-50.0); HEMOGLOBIN 8.1 gm/dL (13.0-16.0); MEAN CELL VOLUME 88.1 FL (83-96); MEAN CORPUSCULAR HEMOGLOBIN 29.2 PG (28-34); MEAN CORPUSCULAR HGB CONC 33.1 g/dL (30-36); MEAN PLATELET VOLUME 8.1 FL (6.5-11.5); RED BLOOD COUNT 2.79 X10e (3.90-5.60); RED CELL DISTRIBUTION WIDTH 15.5 % (11.0-15.5); WHITE BLOOD COUNT 10.6 X10e3 (4.0-10.5)
[2016-08-17 06:24] LABS: CALCIUM SERUM 7.3 mg/dL (8.4-10.2); CREATININE SERUM 0.5 mg/dL (0.6-1.4); GLOM FILT RATE Estimated 117.8 mL/min (>60); MAGNESIUM 1.4 mg/dL (1.6-3.0); POTASSIUM 3.2 mmol/L (3.5-5.1)
[2016-08-18 05:37] LABS: MEAN CELL VOLUME 87.5 FL (83-96); MEAN CORPUSCULAR HEMOGLOBIN 29.3 PG (28-34); MEAN CORPUSCULAR HGB CONC 33.5 g/dL (30-36); RED BLOOD COUNT 2.74 X10e (3.90-5.60); RED CELL DISTRIBUTION WIDTH 15.4 % (11.0-15.5); WHITE BLOOD COUNT 8.2 X10e3 (4.0-10.5)
[2016-08-18 06:25] LABS: CALCIUM SERUM 7.8 mg/dL (8.4-10.2); CREATININE SERUM 0.5 mg/dL (0.6-1.4); GLOM FILT RATE Estimated 117.8 mL/min (>60); MAGNESIUM 1.8 mg/dL (1.6-3.0); POTASSIUM 3.5 mmol/L (3.5-5.1)
[2016-08-19 06:20] LABS: HEMATOCRIT 25.3 % (38.0-50.0); HEMOGLOBIN 8.4 gm/dL (13.0-16.0); MEAN CELL VOLUME 87.9 FL (83-96); MEAN CORPUSCULAR HEMOGLOBIN 29.1 PG (28-34); MEAN CORPUSCULAR HGB CONC 33.1 g/dL (30-36); MEAN PLATELET VOLUME 8.5 FL (6.5-11.5); RED BLOOD COUNT 2.87 X10e (3.90-5.60); RED CELL DISTRIBUTION WIDTH 15.8 % (11.0-15.5); WHITE BLOOD COUNT 8.9 X10e3 (4.0-10.5)
[2016-08-19 07:09] LABS: BUN/CREATININE RATIO 13.33; CALCIUM SERUM 8.2 mg/dL (8.4-10.2); CREATININE SERUM 0.6 mg/dL (0.6-1.4); GLOM FILT RATE Estimated 109.3 mL/min (>60); MAGNESIUM 1.9 mg/dL (1.6-3.0); POTASSIUM 3.9 mmol/L (3.5-5.1)
[2016-08-20 05:56] LABS: HEMATOCRIT 25.7 % (38.0-50.0); HEMOGLOBIN 8.6 gm/dL (13.0-16.0); MEAN CELL VOLUME 86.6 FL (83-96); MEAN CORPUSCULAR HGB CONC 33.5 g/dL (30-36); MEAN PLATELET VOLUME 8.3 FL (6.5-11.5); RED BLOOD COUNT 2.97 X10e (3.90-5.60); RED CELL DISTRIBUTION WIDTH 15.3 % (11.0-15.5); WHITE BLOOD COUNT 8.3 X10e3 (4.0-10.5)
[2016-08-20 06:29] LABS: ALBUMIN SERUM 2.4 g/dL (3.5-5.0); BILIRUBIN,TOTAL 0.7 mg/dL (0.2-2.0); BUN/CREATININE RATIO 11.66; CALCIUM SERUM 8.3 mg/dL (8.4-10.2); CREATININE SERUM 0.6 mg/dL (0.6-1.4); GLOM FILT RATE Estimated 109.3 mL/min (>60); MAGNESIUM 1.7 mg/dL (1.6-3.0); POTASSIUM 3.2 mmol/L (3.5-5.1)
[2016-08-21 05:57] LABS: MAGNESIUM 1.6 mg/dL (1.6-3.0); POTASSIUM 3.5 mmol/L (3.5-5.1)
[2016-08-22 10:25] LABS: BASOPHIL# 0.2 X10e3 (0-0.3); BASOPHIL% 2.9 % (0-2.5); EOSINOPHIL# 0.3 X10e3 (0-0.7); EOSINOPHIL% 3.6 % (0.0-7.0); HEMOGLOBIN 8.4 gm/dL (13.0-16.0); LYMPHOCYTE# 2.5 X10e3 (1.0-3.5); LYMPHOCYTE% 32.2 % (17.0-45.0); MEAN CELL VOLUME 87.1 FL (83-96); MEAN CORPUSCULAR HEMOGLOBIN 29.2 PG (28-34); MEAN CORPUSCULAR HGB CONC 33.5 g/dL (30-36); MEAN PLATELET VOLUME 7.9 FL (6.5-11.5); MONOCYTE# 0.9 X10e3 (0-1.0); MONOCYTE% 11.8 % (3.0-12.0); NEUTROPHIL# 3.8 X10e3 (1.5-7.1); NEUTROPHIL% 49.5 % (40-75); PLATELET COUNT 224 X10e3 (140-420); RED BLOOD COUNT 2.87 X10e (3.90-5.60); RED CELL DISTRIBUTION WIDTH 15.7 % (11.0-15.5); WHITE BLOOD COUNT 7.7 X10e3 (4.0-10.5)
[2016-08-22 10:27] LABS: DIFF IND NO
[2016-08-22 10:50] LABS: BUN/CREATININE RATIO 11.66; CALCIUM SERUM 8.2 mg/dL (8.4-10.2); CREATININE SERUM 0.6 mg/dL (0.6-1.4); GLOM FILT RATE Estimated 109.3 mL/min (>60); POTASSIUM 3.4 mmol/L (3.5-5.1)
[2016-08-23] MEDS ORDERED: LEVEMIR100 UNITS/ SUBQ (13:44)
[2016-08-23] MEDS ORDERED: FLAGYL250 M1 FT (13:46)
[2016-08-23] MEDS ORDERED: DESENEX45 G1 TD (13:49)
[2016-08-23] MEDS ORDERED: ATIVAN0.5 MG FT (13:51)
[2016-08-23] MEDS ORDERED: SENNA8.8 MG/5 M FT (13:55)
[2016-08-23] MEDS ORDERED: BUMEX1 MG FT (13:56)
[2016-08-23] MEDS ORDERED: ZESTRIL5 MG FT (13:58)
[2016-08-23] MEDS ORDERED: [UNRECOGNIZED DRUG - OTHER] IV (14:07)
== END 2016-08-23 15:20 | disposition home or self-care (01) | DRG 853 ==
LOC: CED 17:42 → CEDOF 20:40 → C3A PCU 20:40 → CED 21:08 → CEDOF 21:08 → CICCU2 23:37 → CEDOF 23:37 → C3A PCU 08-09 14:09
PROVIDERS: Hospitalist; Internal Medicine; Nurse Practitioner Family; Physician Assistant Medical; Student in an Organized Health Care Education/Training Program
PROC: 02HV33Z Insertion of Infusion Device into Superior Vena Cava, Percutaneous Approach (ICD-10-PCS; 2016-08-08)
PROC: 4A02X4A Measurement of Cardiac Electrical Activity, Guidance, External Approach (ICD-10-PCS; 2016-08-08)
PROC: 0B9M8ZZ Drainage of Bilateral Lungs, Via Natural or Artificial Opening Endoscopic (ICD-10-PCS; 2016-08-11)
PROC: 0B9F8ZX Drainage of Right Lower Lung Lobe, Via Natural or Artificial Opening Endoscopic, Diagnostic (ICD-10-PCS; 2016-08-11 10:04)
PROC: 0B21XFZ Change Tracheostomy Device in Trachea, External Approach (ICD-10-PCS; principal; 2016-08-21)
DX: A41.9 Sepsis, unspecified organism (principal); J96.21 Acute and chronic respiratory failure with hypoxia; J18.9 Pneumonia, unspecified organism; A04.7 Enterocolitis due to Clostridium difficile; E46 Unspecified protein-calorie malnutrition; Z43.0 Encounter for attention to tracheostomy; N39.0 Urinary tract infection, site not specified; E11.9 Type 2 diabetes mellitus without complications; I10 Essential (primary) hypertension; I25.10 Atherosclerotic heart disease of native coronary artery without angina pectoris; E78.5 Hyperlipidemia, unspecified; Z79.4 Long term (current) use of insulin; Z86.73 Personal history of transient ischemic attack (TIA), and cerebral infarction without residual deficits; M54.9 Dorsalgia, unspecified; G89.29 Other chronic pain; B96.1 Klebsiella pneumoniae [K. pneumoniae] as the cause of diseases classified elsewhere; D64.9 Anemia, unspecified; F32.9 Major depressive disorder, single episode, unspecified; F41.9 Anxiety disorder, unspecified; E87.6 Hypokalemia; Z68.27 Body mass index [BMI] 27.0-27.9, adult; G40.909 Epilepsy, unspecified, not intractable, without status epilepticus; E83.42 Hypomagnesemia
CPT/HCPCS: 36556; 36600; 51701; 71010; 71250; 74230; 80048; 80053; 80076; 80200; 80202; 81003; 82308; 82553; 82565; 82803; 82947; 83036; 83605; 83735; 84100; 84132; 84484; 84520; 85025; 85027; 85610; 85730; 87040; 87070; 87077; 87086; 87088; 87102; 87106; 87116; 87186; 87205; 87206; 87252; 87254; 87278; 88108; 88305; 88312; 89051; 92526; 92611; 93005; 94640; 94760; 96361; 96365; 96375; 97161; 97167; 99285; C9113; G8997-GN; G8998-GN; J0360; J1568; J1650; J1815; J2185; J2250; J2543; J2930; J3260; J3370; J3475; J3480

== ENCOUNTER 2016-09-01 04:31 | Inpatient (IN) | payer OTHER ==
--- NOTE | ~2016-09-01 | CO ---
Unit #: [id number] #: [id number] Patient: DANILO VELASQUEZ [id number] [address] [address] [id number] I MR#: [id number] NAME: DANILO VELASQUEZ ROOM: 02590 Age: 60 Sex: M Admission Date: 09/01/2016 : 1955 Attending Physician: Yasmeen Sharp M.D. Primary Care Physician: Maulik Alexander M.D. Consultation Date: 09/01/2016 CONSULTATION REPORT The patient was admitted to Dr. Maulik Alexander. REASON FOR CONSULTATION Antibiotic management. HISTORY OF PRESENT ILLNESS This is a 60-year-old male that is well known to our service with history of chronic respiratory failure and frequent pneumonias and urinary tract infections. Patient was brought to the emergency room earlier this morning due to some low-grade fevers and not acting right per the ER staff. Currently, there is no family at the bedside. Patient is currently awake. He is able to answer some questions for me as he reports that he denies any headache or shortness of breath. He reports some cough but no pain. Patient was last in the hospital approximately 10 days ago, treated for Pseudomonas pneumonia, ESBL, Klebsiella urinary tract infection, and relapse of Clostridium difficile infection. Patient has been placed on Rocephin and infectious disease was asked to evaluate. PAST MEDICAL HISTORY 1. Chronic respiratory failure with history of tracheostomy in 2016. 2. Autoimmune encephalitis on immunoglobulins. 3. Diabetes. 4. Hypertension. 5. Coronary artery disease. 6. Hyperlipidemia. 7. Chronic back pain with degenerative disk disease. 8. Clostridium difficile colitis. 9. Multidrug resistant Pseudomonas pneumonia. 10. Multiple pseudomonas and ESBL urinary tract infections. PAST SURGICAL HISTORY 1. Bilateral knee surgery. 2. Tonsillectomy. 3. Cardiac cath. 4. Tracheostomy. 5. PEG placement. 6. Colostomy. ALLERGIES Tetanus and diphtheria. MEDICATIONS The patient is currently on Rocephin. For other medications, please refer to patient's MAR. Unit #: [id number] #: [id number] Patient: DANILO VELASQUEZ SOCIAL HISTORY Patient lives with others. He has no alcohol or tobacco abuse. REVIEW OF SYSTEMS Difficult to obtain as patient is currently on a trach collar. Please see HPI for limited questions that he is able to answer. PHYSICAL EXAMINATION VITAL SIGNS: Temperature is 99.3, pulse is 72, blood pressure 157/85, respiratory rate 16. GENERAL: This is an awake male, who is currently on a trach collar. HEENT: His pupils are equal. NECK: Supple with a trach that is midline. CARDIOVASCULAR: S1, S2. Regular rate and rhythm. PULMONARY: Fairly clear and diminished in the bases with minimal rhonchi noted. ABDOMEN: Positive bowel sounds. Soft, no tenderness. There is a colostomy in place and a chronic abdominal wound with healing. EXTREMITIES: No significant edema noted. DIAGNOSTIC STUDIES LABORATORY: BUN 25, creatinine 0.5, sodium 132, potassium 4.2, chloride 95, CO2 of 32. Bilirubin 0.8, AST 19, ALT 15. Lactic acid 1.3. White blood cell count 8.4, hemoglobin 9.9, hematocrit 29.5, platelets 185,000. Urinalysis shows negative nitrites, trace blood, 25-50 WBCs, 4+ bacteria. Blood culture and urine culture is currently pending. IMPRESSION This is a 60-year-old male that is well known to our service with a history of chronic respiratory failure that spent over a year in a long-term acute care facility and was recently back at [facility] approximately 10 days ago with extended spectrum beta lactamases, Klebsiella urinary tract infection and Pseudomonas pneumonia as well as relapse of Clostridium difficile infection. Patient now presents, I am told, with low-grade fever and concern for urinary tract infection by the family; however, they are currently not present for me during my exam. Patient appears nontoxic but he is trying to speak. He is awake and he does not appear in distress. Urinalysis does show pyuria and is concerning for relapse of urinary tract infection. With patient's history of extended spectrum beta lactamases infections, would recommend to discontinue Rocephin and begin patient on meropenem 500 mg IV q.6 hours. With history of recurrent Clostridium difficile colitis, would recommend to begin empiric Flagyl 500 mg p.o. q.8 hours. Will check a CBC and BMP in the a.m. Will have the nursing staff call with any positive blood cultures. At this time, doubtful patient has new pneumonia but with patient's history will check a portable chest x-ray if not already done so with history of pneumonia and chronic respiratory failure. This case will be discussed with Dr. Yan Trotter, who will evaluate this patient as well today. Thank you for allowing us to participate in the care of this patient. Further recommendations to follow pending patient's clinical course. Dictated by... Kirsten Solorzano A.P.R.N. for Unit #: [id number] #: [id number] Patient: DANILO VELASQUEZ M.D. SLS/mckenna TD: 09/01/2016 11:41 JOB #: [id number] CONSULTATION REPORT Page 1 of 1 X X CONSULTATION REPORT
--- NOTE | ~2016-09-01 | DS ---
Unit #: [id number] #: [id number] Patient: DANILO VELASQUEZ [id number] [address] [address] [id number] I MR#: [id number] NAME: DANILO VELASQUEZ ROOM: 340 Age: 60 Sex: M Admission Date: 09/01/2016 : 1955 Discharge Date: 09/05/2016 Attending Physician: Yasmeen Sharp M.D. Primary Care Physician: Maulik Alexander M.D. DISCHARGE SUMMARY DISCHARGE DIAGNOSES 1. Urinary tract infection. 2. Chronic respiratory failure. 3. Diabetes. 4. Anemia of chronic disease. 5. History of seizure disorder. DISCHARGE MEDICATIONS 1. Isosorbide dinitrate 20 mg per G-tube b.i.d. 2. Theophylline 18.75 mg per G-tube t.i.d. 3. Zyprexa 5 mg per G-tube daily. 4. [place] 5/325, one tablet q.6 hours p.r.n. for pain. 5. Multivitamin daily. 6. Flagyl 500 mg p.o. t.i.d. for five days. 7. Sliding scale insulin. 8. Levemir 8 units subcu b.i.d. 9. Lisinopril 5 mg daily. 10. Bumex 1 mg b.i.d. 11. Ativan 1 mg per G-tube q.6 hours p.r.n. for anxiety. 12. Prozac 20 mg daily. 13. Vimpat 100 mg b.i.d. 14. Flomax 0.4 mg p.o. daily. DISPOSITION Going home with the family. CONSULTS DURING THIS HOSPITAL STAY Dr. Cruz - Infectious Disease. LABS, DIAGNOSTICS AND PROCEDURES DURING THIS HOSPITAL STAY Chest x-ray on admission showed improvement in aeration in the right lower lobe. Blood cultures so far are negative. Urine culture - Klebsiella pneumoniae. ESBL production, sensitive to Levaquin. HISTORY OF PRESENT HOSPITAL STAY Please refer to H and P done by my colleague for initial presentation on this gentleman. ACTIVE PROBLEMS AND DIAGNOSES Urinary tract infection: Urine culture as above. Status post ID Unit #: [id number] #: [id number] Patient: DANILO VELASQUEZ. Initially was treated with Merrem currently. ID stable to be discharged with p.o. Flagyl and p.o. Levaquin for five days, all the way through September 10, 2016. Chronic respiratory failure, status post trach: Stable at the baseline. Diabetes: Continue home regimen. Anemia of chronic disease, stable. History of seizure disorder: Continue home meds. Discharge meds as above. Disposition as above. Follow up with primary care physician in two to three days. Dictated by... Brittaney Ramirez/eyal TD: 09/06/2016 06:24 JOB #: [id number] DISCHARGE SUMMARY Page 1 of 1 X Luis Fernando Bell MD X DISCHARGE SUMMARY
--- NOTE | ~2016-09-01 | CR72 ---
[facility] A Service of [facility] & [facility] RADIOLOGY TEXT RESULTS PATIENT: DANILO VELASQUEZ LOCATION: [place] [address]- : 55 UNIT #: [id number] AGE: [address]: Yasmeen Sharp MD SEX: M ORDER DR: [id number] [facility] [address] [place], [place] [address] [id number] I MR#: [id number] #: [id number] NAME: DANILO VELASQUEZ : 1955 SEX: M STUDY DATE/TIME: 09/01/2016 4:52 UNIT: C5B ROOM: [address] [place] [address] DESCRIPTION: CR Chest Single View Portable Attending Physician: Yasmeen Sharp M.D. Ordering Physician: Yasmeen Brush M.D. Primary Care Physician: Maulik Alexander M.D. MEDICAL IMAGING REPORT This report is preliminary unless electronic signature is present EXAM Single view chest. INDICATIONS Fever and tachycardia. Confusion for 1 week. TECHNIQUE Single portable AP view of the chest COMPARISON 08/15/2016 FINDINGS Tracheostomy tube remains in place. Heart and mediastinal contours are normal. There is improving aeration in the right lower lobe. No pneumothorax. IMPRESSION Improving aeration in the right lower lobe. Dictated by... Babatunde Patel M.D. THIS IS AN ELECTRONICALLY VERIFIED REPORT Babatunde Patel M.D. at 09/02/2016 1:02 AM SHYANNE/jean paul TD: 09/01/2016 17:46 JOB #: [id number] MEDICAL IMAGING REPORT Page 1 of 1 COPY
--- NOTE | ~2016-09-01 | HP ---
Unit #: [id number] #: [id number] Patient: DANILO VELASQUEZ [id number] [address] [place], [place] [address] [id number] I MR#: [id number] NAME: DANILO VELASQUEZ ROOM: 550 Age: 60 Sex: M Admission Date: 09/01/2016 : 1955 Attending Physician: Yasmeen Sharp M.D. Primary Care Physician: Maulik Alexander M.D. HISTORY AND PHYSICAL CHIEF COMPLAINT Fever and confusion. HISTORY OF PRESENTING ILLNESS A 60-year-old male who is very well known to me was recently discharged from hospital after having a lengthy stay and was treated for pneumonia and recurrent C. diff infection and UTI. Patient returned because of confusion and a fever at home. There is no one at the bedside so most of the history was taken from ER notes. Patient is awake and alert but is not able to really communicate very well. I have called the patient's , Merissa, and left message to call back. What I can tell, patient has low-grade fever at this time. PAST MEDICAL HISTORY 1. Chronic respiratory failure with a tracheostomy. 2. History of recent admission with pneumonia, UTI and C. diff infection. 3. Diabetes mellitus type 2. 4. Seizure disorder. 5. Autoimmune encephalitis. 6. Coronary artery disease. 7. Hyperlipidemia. 8. Chronic back pain with degenerative disc disease. 9. Hypertension. PAST SURGICAL HISTORY Patient has had multiple surgeries including bilateral knee surgeries, cardiac cath, tonsillectomy, tracheostomy, PEG placement, history of colostomy because of microperforation and ischemic colitis and left hemicolectomy. SOCIAL HISTORY Patient lives at home with his . He was recently admitted in our hospital and then before that was in [place] for long period of time. No smoking, alcohol or drug abuse at this time. ALLERGIES Tetanus and diphtheria toxoid. FAMILY HISTORY Family history is positive for coronary artery disease. HOME MEDICATIONS Unit #: [id number] #: [id number] Patient: DANILO VELASQUEZ Home medications are: 1. Olanzapine 5 mg daily. 2. Lorazepam 1 mg q.6 h. p.r.n. 3. Vimpat 100 mg b.i.d. 4. Sarafem 20 mg daily. 5. Bumex 0.5 mg daily. 6. Isosorbide 20 mg b.i.d. 7. Lisinopril 5 mg daily. 8. Theophylline q.8 h. 9. Multivitamin daily. 10. Levemir 8 units subcu b.i.d. 11. Humulin R sliding scale. On discharge the patient's medications were a little different so we are going to adjust that. PHYSICAL EXAMINATION GENERAL: Patient is being evaluated in room 550. Patient is awake and alert, VITAL SIGNS: Blood pressure is 172/93. Respiratory rate 16. Pulse is 79. Temperature 98.4. Oxygen saturation is 100%. HEENT: Head is normocephalic. Eye movements are normal. NECK: Tracheostomy is in place. CHEST: Has decreased air entry bilateral. CVS: S1, S2 positive, regular rhythm. ABDOMEN: Soft. PEG tube is in place. Colostomy is in place. A scar from the previous surgery is present. EXTREMITIES: No significant edema. DIAGNOSTIC STUDIES LABORATORY: ABG shows pH 7.45, pCO2 of 49, pO2 72.7 and oxygen saturation is 95.3%. WBC 8.4, hemoglobin 9.9, hematocrit 29.5 and platelet count of 185. Lactic acid 1.3. Troponin less than 0.05. Sodium 132, potassium 4.2, chloride 95, BUN 25, creatinine 0.7, liver enzymes are stable, glucose is 270. Urinalysis shows 4+ bacteria. ASSESSMENT Patient is being admitted to telemetry unit with: 1. Fever. 2. Urinary tract infection. 3. History of Clostridium difficile infection recently. 4. Chronic respiratory failure with tracheostomy in place. 5. Diabetes mellitus. 6. Anemia. 7. History of autoimmune encephalitis. 8. Seizure disorder. 9. Coronary artery disease. 10. Hypertension. PLAN 1. Plan is admit to telemetry unit. 2. Home medications have been adjusted. 3. Dr. Trotter has been consulted. 4. IV Merrem 500 mg q.6 h. is being started. 5. Flagyl is being added. 6. I have left a message with the patient's to discuss further. 7. Please refer to progress note for further orders. Unit #: [id number] #: [id number] Patient: RONDANILO Espinal Dictated by Brittaney Smallwood TD: 09/01/2016 17:23 JOB #: [id number] HISTORY AND PHYSICAL Page 1 of 1 X Yasmeen Sharp MD HISTORY AND PHYSICAL
--- NOTE | ~2016-09-01 | A ---
[facility] Nutrition Therapy DATE: 09/03/16 Patient: DANILO VELASQUEZ Physician: TANIKA Address: [address] [place] [address] DRIVE Room/Bed: [address] [place] [address], Zip: [place] [address] Admit Date: 09/01/16 Date of : 55 Height: 5 8 Weight: 194 88 NUTRITIONAL ASSESSMENT: REASON: 2 points nutrition screen risk RE: pressure ulcer and home TF 60 yo male admitted for fever and confusion PMH: Chronic respiratory failure s/p tracheostomy, PEG placement, microperforation and ischemic colitis s/p left hemicolectomy, seizure disorder, HTN, PNA, C.diff, UTI, DM, autoimmune encephalitis, CAD, HLD Anthropometrics: Ht: 5'8" Wt: 88 kg BMI: 29.5 Labs: Cl- 99 Gluc 159 BUN 25 Accuchecks 138-219 Meds: Levemir, MVI + minerals, novolog, bumetanide, NaCl I/O & Bowel function: 570/1850, last BM 09/03, colostomy Skin Integrity: Redness to midline abdomen/ buttocks Denuded open area to coccyx Scabs/ redness/ scars BLE Edema: BLE trace Estimated Nutrition Needs: 7642-0731 kcals (22-26 kcals/ kg) 105-132 grams protein (1.2-1.5 grams/kg) Diet: Mechanical soft + Honey thick liquids + Bolus feeds with Glucerna 1.5 as follows: -Pt receives one can (237 mL) Glucerna 1.5 at each meal (TID) if he consumes 50% of meals or greater -If the pt does not consumes at least 50% of his meals, two cans of Glucerna 1.5 are bolused three times daily for a total of 6 cans per day if the pt has poor intake -One can (237 mL) of Glucerna 1.5 provides: 356 kcals/ 19 grams protein/ 180 mL free H20 Assessment: Chart reviewed, events noted. 60 yo male admitted for fever and confusion. RD at [facility] is familiar with this pt, and he was previously discharged from [facility] 08/22/[address] RD recommended the pt's current home enteral nutrition regimen, which is noted above. Pt takes nutrition PO and has supplemental bolus feeds with Glucerna 1.5. RD spoke with the pt's RN, who reports that the pt consumed more than half of his breakfast, and did not receive his one can bolus until lunch time, as there was some [facility] Nutrition Therapy DATE: 09/03/16 Patient: DANILO VELASQUEZ Physician: TANIKA Address: [address] [place] [address] DRIVE Room/Bed: [address] [place] [address], Zip: [place] [address] Admit Date: 09/01/16 Date of : 55 Height: 5 8 Weight: 194 88 confusion with the call center sending the correct enteral formula. RD called the call center staff to clarify the tube feeding order, and also clarified with the RN. Based on the pt's previous admission weights, his weights are stable since August 2016. Pt is not appropriate for diet education at this time. Dx: Potential for inadequate oral intake RT clinical condition, dysphagia AEB PEG present upon admission, supplemental enteral nutrition via PEG. Intervention: 1. Enteral nutrition 2. Diet per CAN CLOSING MACHINE OPERATOR Monitoring, Evaluation and Goals: 1. Oral intake; tolerate >50% of meals 2. Enteral nutrition; tolerate supplmental nutrition, provide >80% goal volume 3. GI; promote regular GI function 4. Weight; prevent unintentional weight loss Recommendations: 1. PO diet per CAN CLOSING MACHINE OPERATOR recommendations or home diet as ordered by MD. 2. Continue current enteral nutrition regimen with Glucerna 1.5: -If the pt consumes 50% of meals or greater, bolus one can (237 mL) Glucerna 1.5 with each meal -If the pt consumes less than 50% of meals, bolus two cans (474 mL) Glucerna 1.5 TID 3. Add 200 mL free H20 q 4 hrs or per MD orders Pt is at mild nutritional risk. RD will follow up per protocol. Respectfully, STEPHON SCHILLING RD, LD [employer] [facility] cc: client file
--- NOTE | ~2016-09-01 | EKG ---
PATIENT: DANILO VELASQUEZ UNIT #: [id number] Ventricular Rate: 73 BPM Atrial Rate: 73 BPM P-R Interval: 178 ms QRS Duration: 102 ms Q-T Interval: 396 ms QTC Calculation(Bezet): 436 ms P [place]: 21 degrees Calculated R [place]: 35 degrees Calculated T [place]: 35 degrees Diagnosis Line: Normal sinus rhythm Diagnosis Line: Normal ECG Diagnosis Line: No previous ECGs available Diagnosis Line: Confirmed by SAGAR GAMBLE MD ([id number]) on Diagnosis Line: 09/03/2016 11:05:00 AM INTERPRETING MD: TYE CHURCH
[~2016-09-01 04:31] MED LIST changes: +ATIVAN0.5 MG FT; +BICARSIM80 MG PO; +BUMEX1 MG FT; +DESENEX45 G1 TD; +FLAGYL250 M1 FT; +HYDROCODON-ACE1 EAC5 PO; +ISORDIL PO; +LEVEMIR100 UNITS/ SUBQ; +MEGA MULTIVITA1 EACH PO; +MIRALAX17 GM PO; +NORVASC PO; +NOVOLIN R100 UNITS/; +OLANZAPINE5 MG PO; +SARAFEM20 MG PO; +SENNA8.8 MG/5 M FT; +SENNA8.8 MG/5 M PO; +THEOPHYLLIN PO; +VIMPAT100 MG PO; +XANAX0.5 MG PO; +ZESTRIL5 MG FT; +[UNRECOGNIZED DRUG - OTHER] IV
[2016-09-01 05:03] LABS: ARTERIAL BLD GAS O2 SATURATION 95.3 % (90.0-100.0); ARTERIAL BLOOD GAS CARBOXY HB 1.3 %sat (0.0-9.0); ARTERIAL BLOOD GAS HCO3 34.6 mmol/L; ARTERIAL BLOOD GAS MET HB 0.5 %sat (0.0-2.0); ARTERIAL BLOOD GAS pH 7.458 (7.350-7.450)
[2016-09-01 05:04] LABS: ARTERIAL BLOOD GAS ALLEN TEST NORMAL; ARTERIAL BLOOD GAS ART SITE RIGHT RADIAL; ARTERIAL BLOOD GAS PO2 72.7 mmHg (80.0-100); ARTERIAL DRAW? YES
[2016-09-01 05:29] LABS: BASOPHIL# 0.2 X10e3 (0-0.3); EOSINOPHIL# 0.3 X10e3 (0-0.7); EOSINOPHIL% 4.1 % (0.0-7.0); HEMATOCRIT 29.5 % (38.0-50.0); HEMOGLOBIN 9.9 gm/dL (13.0-16.0); LYMPHOCYTE# 2.7 X10e3 (1.0-3.5); LYMPHOCYTE% 32.7 % (17.0-45.0); MEAN CELL VOLUME 87.7 FL (83-96); MEAN CORPUSCULAR HEMOGLOBIN 29.5 PG (28-34); MEAN CORPUSCULAR HGB CONC 33.6 g/dL (30-36); MEAN PLATELET VOLUME 8.9 FL (6.5-11.5); MONOCYTE# 0.8 X10e3 (0-1.0); MONOCYTE% 9.7 % (3.0-12.0); NEUTROPHIL# 4.3 X10e3 (1.5-7.1); NEUTROPHIL% 51.5 % (40-75); PLATELET COUNT 185 X10e3 (140-420); RED BLOOD COUNT 3.36 X10e (3.90-5.60); RED CELL DISTRIBUTION WIDTH 16.3 % (11.0-15.5); WHITE BLOOD COUNT 8.4 X10e3 (4.0-10.5)
[2016-09-01 05:41] LABS: DIFF IND NO
[2016-09-01 05:54] LABS: ALBUMIN SERUM 2.8 g/dL (3.5-5.0); ALKALINE PHOSPHATASE 114 U/L (32-92); ALT (SGPT) 15 U/L (10-40); AST (SGOT) 19 U/L (10-42); BILIRUBIN,TOTAL 0.8 mg/dL (0.2-2.0); BLOOD UREA NITROGEN 25 mg/dL (9-23); BUN/CREATININE RATIO 35.71; CALCIUM SERUM 8.6 mg/dL (8.4-10.2); CARBON DIOXIDE 32 mmol/L (22-31); CHLORIDE 95 mmol/L (100-111); CREATININE SERUM 0.7 mg/dL (0.6-1.4); GLOM FILT RATE Estimated 102.6 mL/min (>60); GLUCOSE FASTING 269 mg/dL (70-110); POTASSIUM 4.2 mmol/L (3.5-5.1); SODIUM 132 mmol/L (135-145)
[2016-09-01 06:03] LABS: POC - CKMB 1.7 ng/mL (0.0-7.9); POC - TROPONIN <0.05 ng/mL (<=0.05)
[2016-09-01 06:05] LABS: BILIRUBIN, DIRECT <0.1 mg/dL (0.0-0.2); BILIRUBIN,INDIRECT 0.7 mg/dL (0.0-0.9)
[2016-09-01 06:22] LABS: URINE APPEARANCE CLEAR; URINE BILIRUBIN NEG (NEG); URINE BLOOD TRACE (NEG); URINE COLOR YELLOW; URINE GLUCOSE NEG (NEG); URINE KETONE NEG (NEG); URINE LEUKOCYTE ESTERASE 1+ (NEG); URINE NITRATE NEG (NEG); URINE PH 6.5 (5-8); URINE PROTEIN 2+ (NEG); URINE SPECIFIC GRAVITY 1.014 (1.003-1.035); URINE UROBILINOGEN 0.2 MG/DL (NEG)
[2016-09-01 06:24] LABS: CULTURE INDICATED? YES; U HYALINE CASTS AUWI 0-2 /[LPF]; URINE BACTERIA AUWI 4+ (NEGATIVE); URINE SQUAMOUS EPITHELIAL CELL NONE SEEN /[HPF]; UWBCS1 AUWI 25-50 (0-5)
[2016-09-01 06:27] LABS: INR 0.9; PARTIAL THROMBOPLASTIN TIME 23.5 SECONDS (23.5-31.3)
[2016-09-01 06:47] LABS: URINE SOURCE CATH
[2016-09-01] MEDS ORDERED: LEVEMIR100 UNITS/ SUBQ ×2 (07:08→10:59)
[2016-09-01] MEDS ORDERED: OLANZAPINE5 MG GT (10:54)
[2016-09-01] MEDS ORDERED: LORAZEPAM1 MG GT (10:55)
[2016-09-01] MEDS ORDERED: VIMPAT100 MG GT (10:55)
[2016-09-01] MEDS ORDERED: BUMETANIDE0.5 MG GT (10:56)
[2016-09-01] MEDS ORDERED: SARAFEM20 MG GT (10:56)
[2016-09-01] MEDS ORDERED: ISORDIL GT (10:57)
[2016-09-01] MEDS ORDERED: LISINOPRIL5 MG GT (10:57)
[2016-09-01] MEDS ORDERED: MULTI VITAMIN1 EACH GT (10:58)
[2016-09-01] MEDS ORDERED: UNIPHYLL GT (10:58)
[2016-09-01] MEDS ORDERED: HUMULIN R100 UNIT/1 (10:59)
[2016-09-02 06:41] LABS: HEMATOCRIT 31.1 % (38.0-50.0); HEMOGLOBIN 10.3 gm/dL (13.0-16.0); MEAN CELL VOLUME 87.9 FL (83-96); MEAN CORPUSCULAR HEMOGLOBIN 29.3 PG (28-34); MEAN CORPUSCULAR HGB CONC 33.3 g/dL (30-36); MEAN PLATELET VOLUME 8.8 FL (6.5-11.5); RED BLOOD COUNT 3.53 X10e (3.90-5.60); RED CELL DISTRIBUTION WIDTH 16.5 % (11.0-15.5); WHITE BLOOD COUNT 9.4 X10e3 (4.0-10.5)
[2016-09-02 06:52] LABS: BUN/CREATININE RATIO 31.25; CREATININE SERUM 0.8 mg/dL (0.6-1.4); GLOM FILT RATE Estimated 97.1 mL/min (>60); POTASSIUM 4.1 mmol/L (3.5-5.1)
[2016-09-04 04:58] LABS: HEMATOCRIT 28.2 % (38.0-50.0); HEMOGLOBIN 9.4 gm/dL (13.0-16.0); MEAN CELL VOLUME 89.1 FL (83-96); MEAN CORPUSCULAR HEMOGLOBIN 29.7 PG (28-34); MEAN CORPUSCULAR HGB CONC 33.3 g/dL (30-36); RED BLOOD COUNT 3.17 X10e (3.90-5.60); RED CELL DISTRIBUTION WIDTH 16.7 % (11.0-15.5); WHITE BLOOD COUNT 9.1 X10e3 (4.0-10.5)
[2016-09-04 06:57] LABS: BUN/CREATININE RATIO 32.5; CALCIUM SERUM 8.8 mg/dL (8.4-10.2); CREATININE SERUM 1.2 mg/dL (0.6-1.4); GLOM FILT RATE Estimated 65.4 mL/min (>60); POTASSIUM 4.4 mmol/L (3.5-5.1)
[2016-09-05] MEDS ORDERED: HYDROCODON-ACE1 EAC7 PO (20:15)
[2016-09-05] MEDS ORDERED: FLAGYL GT (20:17)
[2016-09-05] MEDS ORDERED: LEVAQUIN750 M1 GT (20:18)
[2016-09-05] MEDS ORDERED: FLOMAX0.4 M1 GT (20:21)
== END 2016-09-05 23:32 | disposition home or self-care (01) | DRG 699 ==
LOC: CED 04:31 → C3A PCU 08:30 → CEDOF 08:30 → CED 09:00 → CEDOF 12:47 → C5B 12:47 → C3A PCU 20:45
PROVIDERS: Emergency Medicine; Internal Medicine; Physician Assistant Medical; Student in an Organized Health Care Education/Training Program
DX: T83.511A Infection and inflammatory reaction due to indwelling urethral catheter, initial encounter (principal); J96.10 Chronic respiratory failure, unspecified whether with hypoxia or hypercapnia; Z93.0 Tracheostomy status; N31.9 Neuromuscular dysfunction of bladder, unspecified; B96.1 Klebsiella pneumoniae [K. pneumoniae] as the cause of diseases classified elsewhere; E11.9 Type 2 diabetes mellitus without complications; I10 Essential (primary) hypertension; N39.0 Urinary tract infection, site not specified; E78.5 Hyperlipidemia, unspecified; Z16.12 Extended spectrum beta lactamase (ESBL) resistance; Z79.4 Long term (current) use of insulin; D63.8 Anemia in other chronic diseases classified elsewhere; G40.909 Epilepsy, unspecified, not intractable, without status epilepticus; G89.29 Other chronic pain; M54.9 Dorsalgia, unspecified; I25.10 Atherosclerotic heart disease of native coronary artery without angina pectoris; Z88.7 Allergy status to serum and vaccine; Z82.49 Family history of ischemic heart disease and other diseases of the circulatory system; Y73.1 Therapeutic (nonsurgical) and rehabilitative gastroenterology and urology devices associated with adverse incidents; Y92.9 Unspecified place or not applicable
CPT/HCPCS: 36415; 36600; 51701; 71010; 80048; 80076; 81003; 82553; 82803; 82947; 83605; 84484; 85025; 85027; 85610; 85730; 87040; 87086; 87088; 87186; 93005; 94760; 96360; 96361; 99285; J0696; J1650; J1815; J2185

== ENCOUNTER 2016-09-12 21:00 | Emergency (ER) | payer OTHER ==
--- NOTE | ~2016-09-12 | EKG ---
PATIENT: DANILO VELASQUEZ UNIT #: [id number] Ventricular Rate: 69 BPM Atrial Rate: 69 BPM P-R Interval: 166 ms QRS Duration: 92 ms Q-T Interval: 386 ms QTC Calculation(Bezet): 413 ms P [place]: 17 degrees Calculated R [place]: 34 degrees Calculated T [place]: 34 degrees Diagnosis Line: Normal sinus rhythm Diagnosis Line: Normal ECG Diagnosis Line: When compared with ECG of 01-SEP-2016 04:53, Diagnosis Line: No significant change was found Diagnosis Line: Confirmed by HITESH MARADIAGA MD ([id number]) on Diagnosis Line: 09/13/2016 10:41:27 AM INTERPRETING MD: ASHWINI CHURCH
--- NOTE | ~2016-09-12 | CR72 ---
[facility] A Service of [facility] & [facility] RADIOLOGY TEXT RESULTS PATIENT: DANILO VELASQUEZ LOCATION: [facility] : [birth year] UNIT #: [id number] AGE: [address]: Isiah Samuels MD SEX: M ORDER DR: [id number] [facility] [address] [place], [place] [address] [id number] E MR#: [id number] Acc #: [id number] NAME: DANILO VELASQUEZ : 1955 SEX: M STUDY DATE/TIME: 09/12/2016 22:29 UNIT: [facility] ROOM: STUDY DESCRIPTION: CR Chest Single View Portable Attending Physician: Isiah Samuels M.D. Referring Physician: Maulik Alexander M.D. Ordering Physician: Isiah Samuels M.D. Primary Care Physician: Maulik Alexander M.D. MEDICAL IMAGING REPORT This report is preliminary unless electronic signature is present EXAM Portable chest INDICATIONS Shortness of air today 09/12. COMPARISON STUDIES 09/01/2016. FINDINGS A portable view of the chest was obtained. The heart size and vascularity are normal and the lungs are clear. The tracheostomy tube is in good position. There is minimal right base atelectasis which is decreased from the prior study. IMPRESSION Minimal right base subsegmental atelectasis is present which is decreased from the prior study. Otherwise, there is no active disease. Dictated by... Meño Chowdhury M.D. THIS IS AN ELECTRONICALLY VERIFIED REPORT Meño Chowdhury M.D. at 09/13/2016 5:54 AM FEL/pcl TD: 09/12/2016 23:13 JOB #: [id number] MEDICAL IMAGING REPORT Page 1 of 1 COPY
[~2016-09-12 21:00] MED LIST changes: +BUMETANIDE0.5 MG GT; +FLAGYL GT; +FLOMAX0.4 M1 GT; +HUMULIN R100 UNIT/1; +HYDROCODON-ACE1 EAC7 PO; +ISORDIL GT; +LEVAQUIN750 M1 GT; +LISINOPRIL5 MG GT; +LORAZEPAM1 MG GT; +MULTI VITAMIN1 EACH GT; +OLANZAPINE5 MG GT; +SARAFEM20 MG GT; +UNIPHYLL GT; +VIMPAT100 MG GT
[2016-09-12] MEDS ORDERED: XANAX0.5 M1 PO (21:34)
[2016-09-12] MEDS ORDERED: MYLICON40 MG/0.1 PEG (21:35)
[2016-09-12 22:55] LABS: BASOPHIL# 0.1 X10e3 (0-0.3); BASOPHIL% 1.5 % (0-2.5); DIFF IND NO; EOSINOPHIL# 0.5 X10e3 (0-0.7); EOSINOPHIL% 6.4 % (0.0-7.0); HEMATOCRIT 32.9 % (38.0-50.0); HEMOGLOBIN 10.8 gm/dL (13.0-16.0); LYMPHOCYTE# 2.2 X10e3 (1.0-3.5); LYMPHOCYTE% 29.1 % (17.0-45.0); MEAN CELL VOLUME 88.4 FL (83-96); MEAN CORPUSCULAR HGB CONC 32.8 g/dL (30-36); MEAN PLATELET VOLUME 8.4 FL (6.5-11.5); MONOCYTE# 0.8 X10e3 (0-1.0); MONOCYTE% 10.5 % (3.0-12.0); NEUTROPHIL# 3.9 X10e3 (1.5-7.1); NEUTROPHIL% 52.5 % (40-75); PLATELET COUNT 163 X10e3 (140-420); RED BLOOD COUNT 3.72 X10e (3.90-5.60); RED CELL DISTRIBUTION WIDTH 15.7 % (11.0-15.5); WHITE BLOOD COUNT 7.4 X10e3 (4.0-10.5)
[2016-09-12 23:17] LABS: ALBUMIN SERUM 2.8 g/dL (3.5-5.0); BILIRUBIN, DIRECT 0.1 mg/dL (0.0-0.2); BILIRUBIN,INDIRECT 0.5 mg/dL (0.0-0.9); BILIRUBIN,TOTAL 0.6 mg/dL (0.2-2.0); BUN/CREATININE RATIO 42.5; CREATININE SERUM 0.8 mg/dL (0.6-1.4); GLOM FILT RATE Estimated 96.5 mL/min (>60); POTASSIUM 4.6 mmol/L (3.5-5.1); PROTEIN TOTAL SERUM 7.7 g/dL (6.0-8.3)
[2016-09-12 23:21] LABS: URINE SOURCE CLEAN CATCH
[2016-09-12 23:26] LABS: URINE APPEARANCE CLOUDY; URINE BILIRUBIN NEG (NEG); URINE BLOOD NEG (NEG); URINE COLOR YELLOW; URINE GLUCOSE NEG (NEG); URINE KETONE NEG (NEG); URINE LEUKOCYTE ESTERASE TRACE (NEG); URINE NITRATE NEG (NEG); URINE PROTEIN 1+ (NEG); URINE SPECIFIC GRAVITY 1.018 (1.003-1.035); URINE UROBILINOGEN 0.2 MG/DL (NEG)
[2016-09-12 23:28] LABS: URBCS1 AUWI 0-2 /[HPF] (0-2); URINE BACTERIA AUWI NEG (NEGATIVE); URINE SQUAMOUS EPITHELIAL CELL NONE SEEN /[HPF]; UWBCS1 AUWI 0-2 (0-5)
[2016-09-12 23:32] LABS: CULTURE INDICATED? NO
== END 2016-09-13 03:45 | disposition home or self-care (01) ==
LOC: CED 21:00
PROVIDERS: Emergency Medicine
DX: R06.02 Shortness of breath (principal); E11.9 Type 2 diabetes mellitus without complications; I10 Essential (primary) hypertension; R56.9 Unspecified convulsions; Z88.7 Allergy status to serum and vaccine; Z79.899 Other long term (current) drug therapy
CPT/HCPCS: 36415; 51701; 71010; 80048; 80076; 81003; 85025; 93005; 96360; 99285

== ENCOUNTER 2016-09-17 20:53 | Inpatient (IN) | payer OTHER ==
[~2016-09-17] VITALS: Ht 182.9 cm; Wt 78.0 kg
--- NOTE | ~2016-09-17 | CO ---
Unit #: [id number] #: [id number] Patient: DANILO VELASQUEZ [id number] [address] [place], [place] [address] [id number] I MR#: [id number] NAME: DANILO VELASQUEZ ROOM: 332 Age: 61 Sex: M Admission Date: 09/18/2016 : 1955 Attending Physician: Yasmeen Sharp M.D. Primary Care Physician: Maulik Alexander M.D. Consultation Date: 09/19/2016 CONSULTATION REPORT REASON FOR CONSULT Pneumonia. CHIEF COMPLAINT Fever and cough. HISTORY OF PRESENT ILLNESS This is a 61-year-old male who is well known to our service from multiple previous admissions with past medical history significant for chronic respiratory failure, autoimmune encephalopathy, coronary artery disease, who presented to the emergency room from home with fever, cough, and increased sputum production. Patient is well known to be colonized with Pseudomonas with frequent pneumonia and UTI. Per family, patient had a fever of 101 at home yesterday. His chest x-ray was concerning for pneumonia. A CT angiogram was done which showed improvement in the opacity that was present on the previous CT chest from couple weeks ago; however, there is still some persistent bilateral lower lobes consolidation, could be pneumonia versus atelectasis. Per family, there is no nausea, vomiting, or diarrhea. PAST MEDICAL HISTORY 1. Chronic hypoxic respiratory failure. 2. Autoimmune encephalitis. 3. Coronary artery disease. 4. Hypertension. 5. Hyperlipidemia. 6. Diabetes mellitus type 2. PAST SURGICAL HISTORY 1. Tracheostomy. 2. PEG placement. 3. Tonsillectomy. 4. Bilateral knee surgery. 5. Colostomy. SOCIAL HISTORY Patient lives at home with his . He is totally dependent on his family care. No history of alcohol. No drug abuse or smoking. ALLERGIES Unit #: [id number] #: [id number] Patient: DANILO VELASQUEZ Tetanus and diphtheria toxoid. FAMILY HISTORY Coronary artery disease. HOME MEDICATIONS 1. Lorazepam. 2. Vimpat. 3. Bumex. 4. Lisinopril. 5. Theophylline. 6. Hydrocodone. 7. MiraLax. REVIEW OF SYSTEMS A 12-point review of systems were unable to obtain from the patient himself due to his condition. All the story was obtained from the family and the positive symptoms were mentioned above in the history. PHYSICAL EXAMINATION GENERAL: The patient is in no acute distress. VITAL SIGNS: Blood pressure 136/59, respiratory rate 20, O2 saturation 98% on trach collar. HEENT: Atraumatic, normocephalic. PERRLA. EOMI. NECK: Supple. No JVD. No lymphadenopathy. CHEST: Bilateral diffuse rhonchi. HEART: S1, S2. No murmurs, gallops, or rubs. ABDOMEN: Soft, nontender. Bowel sounds positive. No hepatosplenomegaly. EXTREMITIES: Trace edema in the lower extremities. CENTRAL NERVOUS SYSTEM: Awake, alert. He tracks with his eyes and he tried to answer questions, but he is difficult to understand. DIAGNOSTIC STUDIES LABORATORY: Creatinine 0.8, potassium 3.8. Phosphorous 2.3. White blood count 11.8, hemoglobin 10.1. IMAGING: CT chest and x-ray were reviewed and noted by me. ASSESSMENT 1. Healthcare-associated pneumonia, gram negative/methicillin-resistant Staphylococcus aureus. 2. Chronic hypoxic respiratory failure. 3. Fever. 4. Diabetes mellitus type 2. 5. Seizures. 6. Autoimmune encephalitis. PLAN 1. Patient currently is on trach collar and he seems stable. 2. Unfortunately, patient is colonized with pseudomonas and his culture might be always positive, so it is difficult to rely on that. Will obtain at this point procalcitonin and will continue antibiotics pending culture and procalcitonin. 3. Bronchodilator and mucolytics. 4. Continue tube feed. 5. Re-assess for antibiotics need in the next 24 hours. I would like to thank Dr. Sharp for allowing me to be a part of this Unit #: [id number] #: [id number] Patient: DANILO VELASQUEZ patient's care. Dictated by... Brittaney Schulte TD: 09/19/2016 17:08 JOB #: [id number] CONSULTATION REPORT Page 1 of 1 X SERAFIN ARORA MD CONSULTATION REPORT
--- NOTE | ~2016-09-17 | HP ---
Unit #: [id number] #: [id number] Patient: ADNILO VELASQUEZ [id number] [address] [place], [place] [address] [id number] I MR#: [id number] NAME: DANILO VELASQUEZ ROOM: 332 Age: 61 Sex: M Admission Date: 09/18/2016 : 1955 Attending Physician: Yasmeen Sharp M.D. Primary Care Physician: Maulik Alexander M.D. HISTORY AND PHYSICAL CHIEF COMPLAINT Fever and cough with yellowish-colored sputum. HISTORY OF PRESENTING ILLNESS A 61-year-old male who is very well known to me from multiple admissions in the hospital; his last discharge was on September 05, 2016 after being treated for confusion and urinary tract infection. Prior to that he was admitted in August, discharged on August 22 and that time he was treated for pneumonia. According to the patient's , he was doing well. He was doing his physical therapy, everything was going well and then again yesterday he started having high fever. His T-max was 101. He was given Tylenol, did not get better, came to ER for further evaluation. The patient's temperature in ER was found to be 100 degrees Fahrenheit and chest x-ray was done which shows possible bilateral lower lobe pneumonia. The patient had a CTA done of the chest and that shows interval improvement in previously shown opacities in the right and left upper lobe and persistent opacities in the both lower lobes, could represent persistent pneumonia. There is no evidence of pulmonary embolism. Patient does complain of cough with yellowish-colored sputum. There is no hemoptysis. He does not complain of chest pain. He does have tracheostomy. No complaint of chills and no complaint of sweating. No complaint of nausea and vomiting. Patient has had a colostomy and seems to be working very well. PAST MEDICAL HISTORY 1. Chronic respiratory failure with history of tracheostomy in 2016. 2. History of autoimmune encephalitis, on immunoglobulins. 3. History of coronary artery disease, on medical treatment. 4. Hypertension. 5. Hyperlipidemia. 6. Diabetes mellitus type 2. 7. History of chronic back pain and degenerative disc disease. PAST SURGICAL HISTORY 1. History of tracheostomy. 2. History of PEG placement. 3. Tonsillectomy. 4. Bilateral knee surgery. 5. 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 Patient had left hemicolectomy with sigmoid colectomy with transverse colostomy and Savanna pouch. This procedure was done in 2016. SOCIAL HISTORY Unit #: [id number] #: [id number] Patient: DANILO VELASQUEZ Patient lives at home with his . He has been taken care of by his , his son and his sister. He has no history of smoking, alcohol or drug abuse. He requires total care. ALLERGIES Tetanus and diphtheria toxoid. FAMILY HISTORY Family history is positive for coronary artery disease. HOME MEDICATIONS Home medications are: 1. Olanzapine 5 mg daily. 2. Lorazepam 1 mg q.6 h. 3. Vimpat 100 mg b.i.d. 4. Sarafem 20 mg daily. 5. Bumex 1 mg daily. 6. Isosorbide 20 mg b.i.d. 7. Lisinopril 5 mg daily. 8. Theophylline 18.75 q.8 h. 9. Multivitamin daily. 10. Mylicon t.i.d. 11. Hydrocodone on a p.r.n. basis 12. MiraLAX on a daily basis. REVIEW OF SYSTEMS Patient does have history of fever. No history of nausea or vomiting. He does have a history of cough with sputum production. No history of chest pain. Some wheezing. No history of abdominal pain. His colostomy bag has been functioning well. No history of syncopal episode. No history of any leg swelling. No history of any skin wound. PHYSICAL EXAMINATION GENERAL: Patient is being evaluated in room 332. VITAL SIGNS: Blood pressure is 140/87. Respiratory rate 16. Pulse is 58. Temperature 98.1. Oxygen saturation is 99%. HEENT: Head is normocephalic. Eye movements are normal. NECK: The patient does have a tracheostomy tube in place. CHEST: Has decreased air entry, bilateral lower crackles are heard. CVS: S1, S2 positive, regular rhythm. ABDOMEN: Soft. Bowel sounds are positive. Colostomy tube is in place on the left side. Patient does have a significant scarring on the middle of his abdomen. This is from a hemicolectomy. EXTREMITIES: Negative edema. Pulse are palpable. INTERVENTIONAL SALE CONSULTANT: Patient is awake, alert, oriented x3. DIAGNOSTIC STUDIES LABORATORY WORKUP: WBC 11.8, hemoglobin 10.1, hematocrit 30.7 and platelet count of 148. Sodium 136, potassium 4.9, chloride 103, BUN 28, creatinine 0.7, lactic acid 1.5, troponin is less than 0.05. Urinalysis shows 1+ protein, procalcitonin level 0.07. IMAGING: CTA of the chest was done which shows no pulmonary embolism. There is interval improvement of previously shown opacities. Persistent opacities in the both lower lobe. ASSESSMENT Patient is being admitted to telemetry unit with: Unit #: [id number] #: [id number] Patient: DANILO VELASQUEZ 1. Fever. 2. Possible healthcare-acquired pneumonia. 3. Chronic respiratory failure with a history of tracheostomy in the past. 4. History of diabetes mellitus type 2. 5. Seizure disorder. 6. Coronary artery disease. 7. Autoimmune encephalitis. 8. Chronic back pain. 9. History of colostomy with a history of hemicolectomy in the past for microperforation. PLAN Plan is: 1. Admit to telemetry unit. 2. Broad spectrum IV antibiotic is being started. 3. Sputum Gram stain and culture will be sent. 4. Blood culture has been done. 5. Lovenox 40 mg subcu daily is being started. 6. Tylenol p.r.n. for fever. 7. Home medications have been reviewed and adjusted. 8. Dr. Krishnan will be consulted. 9. Plan of care has been discussed with patient and the patient's at length. Dictated by Brittaney Smallwood TD: 09/18/2016 20:36 JOB #: [id number] HISTORY AND PHYSICAL Page 1 of 1 X Yasmeen Sharp MD X HISTORY AND PHYSICAL
--- NOTE | ~2016-09-17 | CT16 ---
[facility] A Service of [facility] & [facility] RADIOLOGY TEXT RESULTS PATIENT: DANILO VELASQUEZ LOCATION: [facility] 332-01 : [birth year] UNIT #: [id number] AGE: [address]: Yasmeen Sharp MD SEX: M ORDER DR: [id number] [facility] [address] [facility]. [place], [place] [address] [id number] I MR#: [id number] Acc #: [id number] NAME: DANILO VELASQUEZ : 1955 SEX: M STUDY DATE/TIME: 09/18/2016 2:18 UNIT: CEDOF ROOM: 22589 STUDY DESCRIPTION: CT Angio Chest for PE Attending Physician: Domenico Brito M.D. Ordering Physician: Richard Main D.O. Primary Care Physician: Maulik Alexander M.D. MEDICAL IMAGING REPORT This report is preliminary unless electronic signature is present EXAM CTA chest PE protocol INDICATION Fever and wheezing for the past 2 days. PROCEDURE Contrast-enhanced CTA of the chest attention on opacification of the pulmonary arteries. Coronal 3-D MIP and sagittal reformatted images reconstructed and submitted. This CT examination was performed with one or more of the following radiation dose reduction techniques: automatic exposure control, adjustment of mA and/or kV according to patient size, and iterative reconstruction. COMPARISON Chest CT 08/09/2016. FINDINGS No evidence for pulmonary embolus. No evidence for acute aortic injury. Coronary artery calcification. Tracheostomy tube in place. There is opacity in the right and left lung base with an area of dense opacity in the right lower lobe as well. Small left pleural effusion is unchanged from the prior. Previously demonstrated opacities in the left upper lobe and right upper lobe have resolved. No acute findings in the included upper abdomen. Percutaneous gastrostomy tube in place. No aggressive appearing bone lesion. IMPRESSION 1. Interval improvement in previously shown opacities in the right and left upper lobe. Persistent opacity in both lower lobes could represent persistent pneumonia or atelectasis. 2. No evidence for pulmonary embolus. [facility] A Service of [facility] & [facility] RADIOLOGY TEXT RESULTS PATIENT: DANILO VELASQUEZ LOCATION: [facility] 332-01 : [birth year] UNIT #: [id number] AGE: [address]: Yasmeen Sharp MD SEX: M ORDER DR: Dictated by... Prem Tierney M.D. THIS IS AN ELECTRONICALLY VERIFIED REPORT Prem Tierney M.D. at 09/18/2016 9:50 PM JITENDRA/georgi TD: 09/18/2016 13:45 JOB #: [id number] MEDICAL IMAGING REPORT Page 1 of 1 COPY
--- NOTE | ~2016-09-17 | CR72 ---
[facility] A Service of [facility] & [facility] RADIOLOGY TEXT RESULTS PATIENT: DANILO VELASQUEZ LOCATION: [place] [address]- : 55 UNIT #: [id number] AGE: [address]: Yasmeen Sharp MD SEX: M ORDER DR: [id number] [facility] [address] [facility]. [place], [place] [address] [id number] I MR#: [id number] Acc #: [id number] NAME: ADNILO VELASQUEZ : 1955 SEX: M STUDY DATE/TIME: 09/17/2016 22:08 UNIT: CEDOF ROOM: 01747 STUDY DESCRIPTION: CR Chest Single View Portable Attending Physician: Domenico Brito M.D. Ordering Physician: Richard Main D.O. Primary Care Physician: Maulik Alexander M.D. MEDICAL IMAGING REPORT This report is preliminary unless electronic signature is present EXAM Portable chest INDICATION Fever, wheezing and shortness of air for the past 5 days. PROCEDURE Frontal view of the chest COMPARISON 09/12/2016 FINDINGS Stable cardiomegaly, atelectasis in the right lung base. No dense consolidation. Tracheostomy tube appropriately positioned. IMPRESSION Cardiomegaly and right basilar atelectasis. No dense consolidation. Dictated by... Prem Tierney M.D. THIS IS AN ELECTRONICALLY VERIFIED REPORT Prem Tierney M.D. at 09/18/2016 9:53 PM JITENDRA/ellen TD: 09/18/2016 13:24 JOB #: [id number] MEDICAL IMAGING REPORT Page 1 of 1 COPY
--- NOTE | ~2016-09-17 | DS ---
Unit #: [id number] #: [id number] Patient: DANILO VELASQUEZ [id number] [address] [address] [id number] I MR#: [id number] NAME: DANILO VELASQUEZ ROOM: 332 Age: 61 Sex: M Admission Date: 09/18/2016 : 1955 Discharge Date: 09/23/2016 Attending Physician: Yasmeen Sharp M.D. Primary Care Physician: Maulik Alexander M.D. DISCHARGE SUMMARY DISCHARGE DIAGNOSES 1. Chronic respiratory failure, status post tracheostomy. Continue tracheostomy care. 2. Diabetes type 2. 3. History of autoimmune encephalitis. Continue intravenous immunoglobulin per Neurology every two weeks; had one on September 22, 2016, per Dr. Oakes. 4. Anemia of chronic disease, stable, hemoglobin and hematocrit at 10.9 and 31.9. 5. History of seizure disorder. Continue home medications. 6. History of dysphagia, on tube feeds. DISCHARGE MEDICATIONS 1. Tylenol p.r.n. 2. Vimpat 100 mg per G-tube b.i.d. home dose. 3. Prozac 20 mg daily. 4. Mylicon 80 mg t.i.d. 5. Xanax 0.5 mg q.6 p.r.n. for anxiety. 6. MiraLax daily. 7. Bumex 1 mg q.a.m. 8. Hydralazine 50 mg q.6 hours p.r.n. for systolic blood pressure more than 165. 9. Zestril 10 mg daily, new prescription given. 10. Multivitamin daily. 11. [place] 10/325 at one tablet q.4 p.r.n. 12. Zyprexa 5 mg daily. 13. Theophylline 18.75 per G-tube q.8 hours per home dose. 14. Imdur 20 mg per G-tube b.i.d. DISPOSITION I had a long and extensive discussion with the patient's . She defers any rehab or long-term care. Therefore, patient is being discharged back home with family. Extended senior living company to follow patient at home. Patient does have an extensive decubitus wound which needs daily dressing. FOLLOWUP Patient is to follow up with primary care physician, Dr. Quesada, and outpatient followup with Neurology. CONSULTS 1. Dr. Krishnan, Pulmonary. 2. Dr. Oakes, Neurology. Unit #: [id number] #: [id number] Patient: DANILO VELASQUEZ LABS, DIAGNOSTICS, AND PROCEDURES 1. IVIG transfusion on September [address] Krishnan. 2. Chest x-ray on admission which showed cardiomegaly, right basilar atelectasis, and no dense consolidation. 3. CT angiogram showed interval improvement in previously shown opacities in the right and left upper lobe, persistent opacity in both lower lobes which could persistent pneumonia or atelectasis. No evidence of pulmonary embolism. 4. Blood culture negative. Sputum culture shows pseudomonas. Urine culture negative. HISTORY OF PRESENT ILLNESS Please refer to History and Physical done by my colleague for initial presentation on this gentleman. ACTIVE PROBLEMS DIAGNOSED Chronic respiratory failure with sputum growing pseudomonas. Status post evaluation per Pulmonary. He initially was treated with antibiotics. However, sputum culture was attributed per Pulmonary again to colonization. No antibiotics needed per Pulmonary. At the time of discharge, patient is afebrile, white count is 9.1, and there are no signs of acute respiratory distress. Continued trach care. Diabetes type 2 with hemoglobin A1c at 6.1. Outpatient followup with primary. Currently diet controlled. History of autoimmune encephalitis, status post Neurology evaluation. Continue IVIG q.2 weeks. Anemia of chronic disease, discharge date hemoglobin and hematocrit 10.9 and 31.9. History of seizure disorder. Continue home medications as above. Dysphagia. Continue tube feeds. Disposition as above and discharge medications as above. Dictated by... Brittaney Ramirez/ricardo TD: 09/23/2016 19:15 JOB #: [id number] Unit #: [id number] #: [id number] Patient: DANILO VELASQUEZ DISCHARGE SUMMARY Page 1 of 1 X Luis Fernando Bell MD DISCHARGE SUMMARY
--- NOTE | ~2016-09-17 | A ---
[facility] Nutrition Therapy DATE: 09/19/16 Patient: DANILO VELASQUEZ Physician: KELY Address: [address] [place] [address] DRIVE Room/Bed: [address] [place] [address], Zip: [place] [address] Admit Date: 09/18/16 Date of : 55 Height: 6 0 Weight: 205 93 NUTRITIONAL ASSESSMENT: REASON: 1 nutritional risk point re: home tube feeds 61 y/o male admitted for fever + cough PMH: chronic respiratory failure, Autoimmune encepholitis, CAD, HTN, HLD, T2DM Anthropometrics: ht: 6'0" wt: 205# (93 kg) BMI 27 Labs: Glu 232, Alb 2.8 Meds: levemir, zestril, zosyn, NaCl, lovenox, miralax I/O & Bowel function: 930/2600. BM 09/18 Skin Integrity: redness- midline abd, BLE; buttocks- stage 2 ulcer on coccyx Estimated Nutrition Needs: 4847-9591 kcal (20-25 kcal/kg) 111-139 g protein (1.2-1.5 g/kg) Diet: Consistent carb + [place]lin diet + pudding thickened liquids + bolus feeds with Glucerna 1.5 as follows: -Pt receives one can (237 mL) Glucerna 1.5 at each meal (TID) if he consumes 50% of meals or greater -If the pt does not consume at least 50% of his meals, two cans of Glucerna 1.5 are bolused three times daily for a total of 6 cans per day if the pt has poor intake -One can (237 mL) of Glucerna 1.5 provides: 356 kcal, 19 g protein, 180 mL free h20. Assessment: Chart reviewed, events noted. Pt seen for 1 nutritional risk point re: tubefeeding. The pt's regular diet at home is noted above. LIQUID SUGAR MELTER recommended pudding thick liquids + slick diet. Per chart, pt only eats for oral gratification. The pt's RN reports that the pt has been aspirating when eating. RD information technology internship spoke with family in room regarding tubefeeding, please see recommendations. RD will continue to follow. Dx: Inadequate oral intake r/t current condition AEB home tubefeeds, PEG in place Intervention: 1. Consistent Carbohydrate + slick diet + pudding thick liquids 2. Tubefeeding [facility] Nutrition Therapy DATE: 09/19/16 Patient: DANILO Espinal NORMASTACEY Physician: KELY Address: [address] [place] [address] DRIVE Room/Bed: [address] [place] [address], Zip: [place] [address] Admit Date: 09/18/16 Date of : 55 Height: 6 0 Weight: 205 93 Monitoring, Evaluation and Goals: 1. Oral intake; tolerate >50% of meals 2. Enteral nutriton; tolerate supplemental nutrition, provide >80% goal volume 3. GI; promote regular GI function 4. Weight; prevent unintentional weight loss Recommendations: 1. PO diet per LIQUID SUGAR MELTER recommendations. 2. Continue current enteral nutrition support regimen with Glucerna 1.5: -If the pt consumes 50% of meals or greater, bolus one can (237 mL) Glucerna 1.5 with each meal -If the pt consumes less than 50% of meals, bolus two cans (474 mL) Glucerna 1.5 TID 3. Add 200 mL free H20 q 4 hours or per MD orders. 4. Continue LIQUID SUGAR MELTER evaluation. Pt is mildly nutritionally compromised Respectfully, MELISSA MACHUCA, regulatory affairs internship Nhung Domingo MS, RD, LD [employer] [facility] cc: client file
[~2016-09-17 20:53] MED LIST changes: +MYLICON40 MG/0.1 PEG; +XANAX0.5 M1 PO
[2016-09-17] MEDS ORDERED: SARAFEM20 MG GT (21:16)
[2016-09-17] MEDS ORDERED: HYDROCODON-ACE1 EAC5 GT (21:18)
[2016-09-17] MEDS ORDERED: MIRALAX17 GM PEG (21:20)
[2016-09-17 22:14] LABS: BASOPHIL# 0.1 X10e3 (0-0.3); BASOPHIL% 0.6 % (0-2.5); EOSINOPHIL# 0.5 X10e3 (0-0.7); HEMATOCRIT 30.7 % (38.0-50.0); HEMOGLOBIN 10.1 gm/dL (13.0-16.0); LYMPHOCYTE# 1.8 X10e3 (1.0-3.5); LYMPHOCYTE% 14.9 % (17.0-45.0); MEAN CELL VOLUME 88.1 FL (83-96); MEAN CORPUSCULAR HGB CONC 32.9 g/dL (30-36); MEAN PLATELET VOLUME 8.9 FL (6.5-11.5); MONOCYTE# 0.8 X10e3 (0-1.0); MONOCYTE% 7.2 % (3.0-12.0); NEUTROPHIL# 8.7 X10e3 (1.5-7.1); NEUTROPHIL% 73.3 % (40-75); PLATELET COUNT 148 X10e3 (140-420); RED BLOOD COUNT 3.49 X10e (3.90-5.60); WHITE BLOOD COUNT 11.8 X10e3 (4.0-10.5)
[2016-09-17 22:21] LABS: DIFF IND NO
[2016-09-17 22:43] LABS: ALBUMIN SERUM 2.8 g/dL (3.5-5.0); BILIRUBIN, DIRECT 0.1 mg/dL (0.0-0.2); BILIRUBIN,INDIRECT 0.4 mg/dL (0.0-0.9); BILIRUBIN,TOTAL 0.5 mg/dL (0.2-2.0); CALCIUM SERUM 8.7 mg/dL (8.4-10.2); CREATININE SERUM 0.7 mg/dL (0.6-1.4); GLOM FILT RATE Estimated 101.9 mL/min (>60); POTASSIUM 4.9 mmol/L (3.5-5.1); PROTEIN TOTAL SERUM 7.4 g/dL (6.0-8.3)
[2016-09-17 22:50] LABS: POC - CKMB 2.9 ng/mL (0.0-7.9); POC - TROPONIN <0.05 ng/mL (<=0.05)
[2016-09-17 23:06] LABS: URINE SOURCE CLEAN CATCH
[2016-09-17 23:14] LABS: URINE APPEARANCE CLEAR; URINE BILIRUBIN NEG (NEG); URINE BLOOD NEG (NEG); URINE COLOR YELLOW; URINE GLUCOSE NEG (NEG); URINE KETONE NEG (NEG); URINE LEUKOCYTE ESTERASE NEG (NEG); URINE NITRATE NEG (NEG); URINE PROTEIN 1+ (NEG); URINE SPECIFIC GRAVITY 1.015 (1.003-1.035); URINE UROBILINOGEN 0.2 MG/DL (NEG)
[2016-09-17 23:18] LABS: URBCS1 AUWI 0-2 /[HPF] (0-2); URINE BACTERIA AUWI NEG (NEGATIVE); URINE SQUAMOUS EPITHELIAL CELL NONE SEEN /[HPF]; UWBCS1 AUWI 0-2 (0-5)
[2016-09-17 23:35] LABS: CULTURE INDICATED? NO
[2016-09-19 07:13] LABS: HEMATOCRIT 30.1 % (38.0-50.0); HEMOGLOBIN 10.1 gm/dL (13.0-16.0); MEAN CELL VOLUME 87.7 FL (83-96); MEAN CORPUSCULAR HEMOGLOBIN 29.5 PG (28-34); MEAN CORPUSCULAR HGB CONC 33.7 g/dL (30-36); MEAN PLATELET VOLUME 8.9 FL (6.5-11.5); RED BLOOD COUNT 3.43 X10e (3.90-5.60); RED CELL DISTRIBUTION WIDTH 15.9 % (11.0-15.5); WHITE BLOOD COUNT 9.6 X10e3 (4.0-10.5)
[2016-09-19 07:51] LABS: CALCIUM SERUM 8.7 mg/dL (8.4-10.2); CREATININE SERUM 0.8 mg/dL (0.6-1.4); GLOM FILT RATE Estimated 96.5 mL/min (>60); POTASSIUM 3.8 mmol/L (3.5-5.1)
[2016-09-20 06:30] LABS: BLOOD UREA NITROGEN 15 mg/dL (9-23); BUN/CREATININE RATIO 21.42; CALCIUM SERUM 8.8 mg/dL (8.4-10.2); CARBON DIOXIDE 28 mmol/L (22-31); CHLORIDE 105 mmol/L (100-111); CREATININE SERUM 0.7 mg/dL (0.6-1.4); GLOM FILT RATE Estimated 101.9 mL/min (>60); GLUCOSE FASTING 209 mg/dL (70-110); POTASSIUM 3.6 mmol/L (3.5-5.1); SODIUM 140 mmol/L (135-145)
[2016-09-20 06:34] LABS: PROCALCITONIN <0.05 NG/ML
[2016-09-21 06:03] LABS: CALCIUM SERUM 8.7 mg/dL (8.4-10.2); CREATININE SERUM 0.8 mg/dL (0.6-1.4); GLOM FILT RATE Estimated 96.5 mL/min (>60); POTASSIUM 3.4 mmol/L (3.5-5.1)
[2016-09-22 08:17] LABS: MEAN CELL VOLUME 86.5 FL (83-96); MEAN CORPUSCULAR HGB CONC 33.5 g/dL (30-36); MEAN PLATELET VOLUME 8.1 FL (6.5-11.5); RED BLOOD COUNT 3.82 X10e (3.90-5.60); RED CELL DISTRIBUTION WIDTH 15.6 % (11.0-15.5); WHITE BLOOD COUNT 10.2 X10e3 (4.0-10.5)
[2016-09-22 08:57] LABS: CALCIUM SERUM 9.1 mg/dL (8.4-10.2); GLOM FILT RATE Estimated 80.9 mL/min (>60); POTASSIUM 3.5 mmol/L (3.5-5.1)
[2016-09-23] MEDS ORDERED: XANAX0.5 M1 PEG (00:17)
[2016-09-23 09:13] LABS: BASOPHIL# 0.1 X10e3 (0-0.3); BASOPHIL% 1.1 % (0-2.5); EOSINOPHIL# 0.2 X10e3 (0-0.7); EOSINOPHIL% 2.3 % (0.0-7.0); HEMATOCRIT 31.9 % (38.0-50.0); HEMOGLOBIN 10.9 gm/dL (13.0-16.0); LYMPHOCYTE% 21.6 % (17.0-45.0); MEAN CELL VOLUME 86.8 FL (83-96); MEAN CORPUSCULAR HEMOGLOBIN 29.6 PG (28-34); MEAN CORPUSCULAR HGB CONC 34.1 g/dL (30-36); MEAN PLATELET VOLUME 7.8 FL (6.5-11.5); MONOCYTE# 1.3 X10e3 (0-1.0); MONOCYTE% 13.7 % (3.0-12.0); NEUTROPHIL# 5.6 X10e3 (1.5-7.1); NEUTROPHIL% 61.3 % (40-75); PLATELET COUNT 210 X10e3 (140-420); RED BLOOD COUNT 3.67 X10e (3.90-5.60); RED CELL DISTRIBUTION WIDTH 15.7 % (11.0-15.5); WHITE BLOOD COUNT 9.1 X10e3 (4.0-10.5)
[2016-09-23 09:15] LABS: DIFF IND NO
[2016-09-23 09:44] LABS: CALCIUM SERUM 8.9 mg/dL (8.4-10.2); GLOM FILT RATE Estimated 80.9 mL/min (>60)
[2016-09-23] MEDS ORDERED: ZESTRIL10 M1 PEG (16:59)
[2016-09-23] MEDS ORDERED: HYDRALAZINE HCL50 MG PEG (17:02)
[2016-09-23] MEDS ORDERED: TYLENOL325 MG/10. PEG (17:04)
== END 2016-09-24 02:12 | disposition home or self-care (01) | DRG 864 ==
LOC: CED 20:53 → CEDOF 09-18 03:50 → C3A PCU 09-18 03:50 → CEDOF 09-18 04:26 → CED 09-18 04:26 → C3A PCU 09-18 04:26 → CEDOF 09-18 05:56 → C3A PCU 09-18 15:26
PROVIDERS: Emergency Medicine; Hospitalist; Internal Medicine Pulmonary Disease; Physician Assistant Medical
PROC: B32TYZZ Computerized Tomography (CT Scan) of Left Pulmonary Artery using Other Contrast (ICD-10-PCS; principal; 2016-09-18)
PROC: B32SYZZ Computerized Tomography (CT Scan) of Right Pulmonary Artery using Other Contrast (ICD-10-PCS; 2016-09-18)
DX: R50.9 Fever, unspecified (principal); G04.81 Other encephalitis and encephalomyelitis; J96.11 Chronic respiratory failure with hypoxia; L89.152 Pressure ulcer of sacral region, stage 2; I25.10 Atherosclerotic heart disease of native coronary artery without angina pectoris; I10 Essential (primary) hypertension; E78.5 Hyperlipidemia, unspecified; E11.9 Type 2 diabetes mellitus without complications; Z79.84 Long term (current) use of oral hypoglycemic drugs; Z93.3 Colostomy status; Z93.0 Tracheostomy status; G40.909 Epilepsy, unspecified, not intractable, without status epilepticus; M54.9 Dorsalgia, unspecified; G89.29 Other chronic pain; R05 Cough
CPT/HCPCS: 36415; 51701; 71010; 71275; 74230; 80048; 80076; 80200; 80202; 81003; 82308; 82553; 82947; 83036; 83605; 84484; 85025; 85027; 87040; 87070; 87077; 87086; 87186; 87205; 92610; 92611; 94760; 99285; G8996-GN; G8997-GN; G8998-GN; J1568; J1650; J2543; J3260; J3370; Q9967

== ENCOUNTER 2016-09-27 06:51 | Emergency (ER) | payer OTHER ==
[~2016-09-27] VITALS: Ht 170.2 cm; Wt 78.0 kg
--- NOTE | ~2016-09-27 | CR7 ---
[facility] A Service of [facility] & [facility] RADIOLOGY TEXT RESULTS PATIENT: DANILO VELASQUEZ LOCATION: [facility] : 55 UNIT #: [id number] AGE: [address]: Isiah Samuels MD SEX: M ORDER DR: [id number] [facility] [address] [place], [place] [address] [id number] E MR#: [id number] Acc #: [id number] NAME: DANILO VELASQUEZ : 1955 SEX: M STUDY DATE/TIME: 09/27/2016 7:35 UNIT: [facility] ROOM: STUDY DESCRIPTION: CR Abdomen Single AP View Attending Physician: Isiah Samuels M.D. Ordering Physician: Isiah Samuels M.D. Primary Care Physician: Maulik Alexander M.D. MEDICAL IMAGING REPORT This report is preliminary unless electronic signature is present EXAM Supine radiograph of the abdomen, 09/27/2016 HISTORY GI tube replacement. RN injected 60 mL of Gastrografin in G-tube. G-tube came out today. FINDINGS Supine radiograph of the abdomen is presented. There are some patchy densities at the bilateral lung bases which are nonspecific and may represent areas of atelectasis or basilar pneumonia. The patient has a gastrostomy tube in place. Injection of contrast material shows gastrostomy tube within stomach. It appears to enter the mid body of stomach. There is no extraluminal contrast seen. Visualized bowel gas pattern normal. Multiple surgical clips superimposed over the abdomen. Superimposed over the left lower renal pole is a 6.0 mm calcification which could represent a lower pole renal calculus. If it would assist in management, this could be further evaluated with CT. No acute bony abnormality. Dictated by... Griffin Melvin M.D. THIS IS AN ELECTRONICALLY VERIFIED REPORT Griffin Melvin M.D. at 09/27/2016 6:31 PM Adiel TD: 09/27/2016 09:14 JOB #: [id number] MEDICAL IMAGING REPORT Page 1 of 1 COPY
[~2016-09-27 06:51] MED LIST changes: +HYDRALAZINE HCL50 MG PEG; +HYDROCODON-ACE1 EAC5 GT; +MIRALAX17 GM PEG; +TYLENOL325 MG/10. PEG; +XANAX0.5 M1 PEG; +ZESTRIL10 M1 PEG
== END 2016-09-27 09:20 | disposition home or self-care (01) ==
LOC: CED 06:51
DX: Z43.1 Encounter for attention to gastrostomy (principal); E11.9 Type 2 diabetes mellitus without complications; E78.5 Hyperlipidemia, unspecified; Z88.7 Allergy status to serum and vaccine; Z79.899 Other long term (current) drug therapy
CPT/HCPCS: 43760; 74000; 99283

== ENCOUNTER 2016-09-28 05:01 | Emergency (ER) | payer OTHER | END 2016-09-28 05:14 | disposition EXP | LOC: CED 05:01 | DX: I46.9 Cardiac arrest, cause unspecified (principal); Z88.7 Allergy status to serum and vaccine; Z79.899 Other long term (current) drug therapy | CPT/HCPCS: 92950; 99285 ==